=== PATIENT | male | born 1985 | race Caucasian/White ===

== ENCOUNTER → 2021-01-30 13:02 | Outpatient (BNVA) | payer BC, SELFPAY | PROVIDERS: PCP Internal Medicine; Visit Provider Internal Medicine | DX: G47.33 Obstructive sleep apnea (adult) (pediatric) (principal); R00.2 Palpitations | CPT/HCPCS: 93005 ==

== ENCOUNTER → 2021-03-08 10:36 | Outpatient (REF) | payer BC, SELFPAY ==
--- NOTE | 2021-03-08 10:42 | HM_ITS ---
REQUESTING PROVIDER: Dr. Prieto. INDICATION FOR TEST: Palpitation. TECHNIQUE: The patient was hooked up to cardiac event monitor from 03/08/2021 to 04/07/2021 for a total of 30 days. The patient reported events during this time. FINDINGS: Baseline rhythm was normal sinus rhythm with heart rate varying from 54 to 116 beats per minute. There were rare to occasional isolated PVCs noted. No significant arrhythmias either tachyarrhythmias or blocks were noted. The patient reported multiple events of palpitations, 60% of which correlated with isolated PVCs. Rest of the other symptoms correlated with sinus rhythm. CONCLUSION: Cardiac event monitor is remarkable for: 1. Baseline normal sinus rhythm with no significant tachy or bradyarrhythmias. 2. Rare to occasional isolated PVCs noted. 3. The patient reported events of palpitation and fluttering correlated with PVCs 60% of the time. Fortino Lazo MD NRS/MODL / [id number]
--- NOTE | 2021-03-08 10:42 | CA_ITS ---
Transthoracic Echocardiogram Patient (Last, First, Middle): Sky Wynn, Gender: Male Date of : 1985 Age: 35 Procedure Date: 03/08/2021 Procedure Type: Transthoracic Echocardiogram Location: OP Height: 195.58 cm Weight: 108.86 kg BSA: 2.42 m2 Heart Rate: bpm BP: 120 / 70 mmHg Florist'S Decorator: BALJINDER Referring MD: Carson Prieto MD Symptoms: R00.2 - Palpitations Study Quality: Fair ECG Rhythm: Sinus Conclusions: - The left ventricular systolic function is normal. The visually estimated ejection fraction is between 55-60%. - No obvious valvular pathology seen on this study. Findings Left Ventricle Normal left ventricular cavity size. There is normal left ventricular wall thickness. The left ventricular systolic function is normal. The visually estimated ejection fraction is between 55-60%. There is no evidence of regional wall motion abnormalities. Diastolic function is normal for age. Right Ventricle Normal right ventricular cavity size and systolic function. Atria The left atrium is normal in size. The right atrium is normal in size. Aortic Valve There is a normal trileaflet aortic valve. There is no aortic valve stenosis. There is no aortic valve regurgitation. Mitral Valve The mitral valve appears normal. There is trace mitral valve regurgitation. There is no mitral valve stenosis. Pulmonic Valve The pulmonic valve was not well visualized. Tricuspid Valve Normal tricuspid valve structure. There is no tricuspid valve regurgitation. Tricuspid regurgitation envelope is inadequate for calculation of right ventricular systolic pressure. Great Vessels The aortic annulus, sinuses of valsalva, asc aorta, and aortic arch are normal in size. Venous The inferior vena cava is normal in size and collapses greater than 50% with inspiration. Pericardium/Pleural There is no evidence of pericardial effusion. Prior Study Comparison No prior study available for comparison. Recommendations, Care & Conclusions No obvious valvular pathology seen on this study. Measurements M-Mode Liner Measurements Normals - Women/Men IVSd: 1.02 0.6-0.9/0.6-1.0 cm LVIDd: 5.94 3.9-5.3/4.2-5.9 cm LVIDd Index: 2.45 1.9-3.2 cm/m2 LVIDs: 3.74 2.0-3.8 cm M-Mode Volumes LV EDV: 176.00 LV ESV: 59.60 2D Linear Measurements IVSd: 0.84 0.6-0.9/0.6-1.0 cm LVIDd: 5.67 3.9-5.3/4.2-5.9 cm LVIDd Index: 2.34 2.4-3.2/2.2-3.1 cm/m2 LVIDs: 3.86 2.0-3.6 cm LVPWd: 0.81 0.7-1.1 cm Ao Root: 2.90 2.1-3.5 cm LA Diam: 3.60 2.7-3.8/3.0-4.0 cm LAIDs Index: 1.49 1.5-2.3 cm/m2 LV Mass: 218.67 67-162/88-224 g LV Mass Index: 90.36 43-95/49-115 g/m2 LVOT Diam: 2.50 3.0+(-)1.3 cm 2D Systolic Function EF 4C: 56.20 >55% EF 2C: 64.20 >55% EF BiP: 60.50 >55% M-Mode Systolic Function FS: 37.00 27-47/25-43% LVEF: 66.10 >55% Mitral Valve MV Pk E: 0.59 MV PK A: 0.32 MV Decel Time: 213.00 E/A: 1.80 E'Lateral: 14.10 E'Medial: 14.30 E/E' Med: 4.10 E/E' Lat: 4.20 PHT: 62.00 MVA PHT: 3.55 Decel [place]: 2.76 Aortic Valve AoV Pk Ashwin: 1.07 AoV Pk Grad: 5.00 LVOT LVOT Pk Ashwin: 1.03 LVOT Mn Ashwin: 0.63 LVOT VTI: 0.23 LVOT Pk Grad: 4.00 LVOT Mn Grad: 2.00 LVOT Diam: 2.50 LVOT Area: 4.91 Diastolic Function MV Pk E: 0.59 MV Pk A: 0.32 E/A: 1.80 E'Medial: 14.30 E/E' Med: 4.10 E' Laterial: 14.10 E/E' Lat: 4.20 Tricuspid Valve RA Press: 3.00 Great Vessels Aorta Ao Root-2D: 2.90 2.0-3.7 cm Ao Asc: 2.90 2.1-3.4 cm Ao Arch: 2.60 Updated in Other Vendor System with Status of Final Carson Prieto MD electronically signed on 03/09/2021 4:17:18 PM with status of Final
== END ==
LOC: HO.CARD 10:36
PROVIDERS: PCP Internal Medicine; Visit Provider Internal Medicine
DX: R00.2 Palpitations (principal)
CPT/HCPCS: 93225; 93270; 93272; 93306

== ENCOUNTER → 2021-04-12 08:20 | Outpatient (BNVA) | payer BC, SELFPAY | PROVIDERS: PCP Internal Medicine; Visit Provider Internal Medicine ==

== ENCOUNTER 2025-01-05 14:53 | Outpatient (AMB) | payer BC, SELFPAY ==
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
[2025-01-05 15:18] VITALS: BP 110/64; PULSE 75; TEMP 36.6; O2SAT 99; BMI 29.2
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
--- OUTSIDE RECORDS SUMMARY | 2025-01-05 16:05 | XMS_ITS | Patient Health Record ---
Author Organization [facility] Address [address] [place] [address] Care Team Providers Care Hanging Flags Decorator Name Role Phone Juanjose Bowden MD Primary Care Provider Unavail Lang Trejo Unavailable [phone] Allergies No Known Allergies Reason For Referral No Information Social History Tobacco Use: Social History Observation Description Date Details (start date - stop date) Never Smoker NA - NA Tobacco Use/Smoking Question Answer Notes Are you a: nonsmoker Additional Findings: Tobacco Non-User Current no n-smoker Alcohol Screen Question Answer Notes Did you have a drink contain ing alcohol in the past year? Yes How often did you have a dri nk containing alcohol in the past year? 2 to 3 times a week (3 points) Points 3 Interpretation Negative Tobacco use other than smoking: Question Answer Notes Are you an other tobacco user? No Problems Problem Type SNOMED Code ICD Code Onset Dates Problem Status W/U Status Risk Notes Problem Acquired hallux valgus (48303401) Hallux valgus (acquired), left foot (M20.12) Active confirmed Problem Acquired hallux valgus (85464078) Hallux valgus (acquired), right foot (M20.11) Active confirmed Vital Signs Height 6ft 5in in 07/13/2024 Weight 240 lbs 07/13/2024 BMI 28.46 kg/m2 07/13/2024 Encounters Encounter Location Date Provider Diagnosis [facility] [address] [place] [address] 07/13/2024 Lang Vela Pain in left foot M79.672 ; Pain in left ankle and joints of left foot M25.572 ; Bursitis of left foot M77.52 ; Hallux valgus (acquired), left foot M20.12 ; Pain in right foot M79.671 ; Pain in right ankle and joints of right foot M25.571 ; Bursitis of right foot M77.51 and Hallux valgus (acquired), right foot M20.11 Assessments Encounter Date Diagnosis (ICD Code) Assessment Notes Treatment Notes Treatment Clinical Notes Section Notes 07/13/2024 Pain in left foot (ICD-10 - M79.672) 07/13/2024 Pain in left ankle and joints of left foot (ICD-10 - M25.572) 07/13/2024 Bursitis of left foot (ICD-10 - M77.52) 07/13/2024 Hallux valgus (acquired), left foot (ICD-10 - M20.12) 07/13/2024 Pain in right foot (ICD-10 - M79.671) 07/13/2024 Pain in right ankle and joints of right foot (ICD-10 - M25.571) 07/13/2024 Bursitis of right foot (ICD-10 - M77.51) 07/13/2024 Hallux valgus (acquired), right foot (ICD-10 - M20.11) Plan Of Treatment Pending Test Test Name Order Date X ray : Foot, left 3V 07/13/2024 X ray : Foot, right 3V 07/13/2024 Insurance Providers Payer Name Payer Address Payer Phone Subscriber Number Group Number Insured Name Patient Relationship to Insured Coverage Start Date Coverage End Date [employer] [address] [place] [address] [id number] Sky Wynn Self - patient is the insured Medical (General) History Medical History History ICD Code asthma covid-19 Chicken pox Surgical History Surgery Date(Month/Year)
--- OUTSIDE RECORDS SUMMARY | 2025-01-05 16:05 | XMS_ITS ---
Author Organization [facility] cecily Panna Maria Address [address] [facility] [place] [address] Care Team Providers Care Sales Representative Raw [employer]ers Name Role Phone Juanjose Bowden MD Primary Care Provider Unavail Lang Trejo Unavailable [phone] Allergies No Known Allergies REASON FOR VISIT Foot pain Social History Tobacco Use: Social History Observation [...] Status Risk Notes Problem Acquired hallux valgus (25359842) Hallux valgus (acquired), left foot (M20.12) Active confirmed Problem Acquired hallux valgus (46562627) Hallux valgus (acquired), right foot (M20.11) Active confirmed Vital Signs Height 6ft 5in in 07/13/2024 Weight 240 lbs 07/13/2024 BMI 28.46 kg/m2 07/13/2024 Encounters Encounter Location Date Provider [facility] [address] [facility] [place] [address] 07/13/2024 Lang Vela Pain in left foot [...] X ray : Foot, right 3V 07/13/2024 Next Appt Details Follow Up: prn, Reason: Progress Notes * Sky WYNN CDOB:1984 (38 yo M)Acc No.[id number]:07/13/2024 Progress Notes Patient:?Sky Wynn Provider:?Lang Vela DPM :1985???Age:38 Y???Sex:Male Milo e:07/13/2024 Address:[address] [place], [place] [id number] Pcp:Juanjose Bowden MD Subjective: * Chief Complaints: * ???Foot pain * HPI: ???Foot Pain:?Location:?Inside, Great toe joint, B/L.?Duration:?several months.?Course:?worse.?Aggravated:?any pressure.?Treatments:?rest/alter normal daily activity.? * ROS:?General/Constitutional:?Nausea?denies.?Vomiting?denies.?Hunger Thirst?denies.?Loss appetite?denies.?Chills?denies.?Fatigue?denies.?Fever?denies.?Night Sweats?denies.?Unexplained weight loss?denies.?Unexplained weight gain?denies.?HEENTM:?Dentures?denies.?Dizziness?denies.?Glasses/contacts?denies.?Retinopathy?de nies.?Blurred/double vision?denies.?TMJ?denies.?Discharge/drainage?denies.?Implants?denies.?Sore throat?denies.?Dental implants?denies.?Hard of hearing ?denies.?Difficulty chewing/swallowing/speaking?denies.?Nose bleeds?denies.?Sore mouth?denies.?Respiratory:?On Oxygen?denies.?Pneumonia/pleurisy?denies.?Bronchitis?denies.?Emphysema?denies.?C oughing?denies.?Cough blood?denies.?Shortness of breath?denies.?Wheezing?denies.?Cardiovascular:?Pacemaker?denies.?MVP?denies.?WPW?denies.?CHF?denies.?Heart attack?denies.?Septal defect?denies.?Rapid beat?denies.?Chest pain ?denies.?Atrial Fib.?denies.?Murmur/Palpitations?admits.?Gastrointestinal:?Hemorrhoids?denies.?Stomach/Abdominal pain?denies.?Dark blood stool?denies.?Irritable bowel ?denies.?Constipation?denies.?Diarrhea?denies.?Hematology:?Swelling?denies.?Clots?denies.?Varicose Veins?denies.?Bruising?denies.?Bleeding problem?denies.?Genitourinary:?Blood urine?denies.?Frequent/Painfu/urination/bladder control?denies.?Kidney stones?denies.?Infection (UTI)?denies.?Nephropathy?denies.?sex trans dis (STD)?denies.?Prostate?denies.?Musculoskeletal:?Hammertoes?denies.?Bunions?admits.?Back Pain?denies.?Muscle Cramps/ Resting?denies.?Muscle cramps / walking?denies.?Generalized aches and pains?denies.?Weakness?denies.?Integ.:?Cui?denies.?Scars?denies.?Corns/calluses?denies.?Ingrown nails?denies.?Painful nails?denies.?Open Sores?denies.?Rashes?denies.?Neurologic:?Difficulty sleeping?denies.?Brain disorder?denies.?Numbness?denies.?Balance trouble?denies.?Confusion?denies.?Fainting/blackouts?denies.?Tingling?denies.?Tr emors?denies.? * Medical History:? * Surgical History:?Denies Pas t Surgical History * Hospitalization/Major Diagno stic Procedure:?Denies Past Hospitalization * Family History:?Mother: alie mcmahan.?Father: alive, heart attack, diagnosed with Diabetic - NIDDM, Unspecified essential hypertension, Unspecified heart disease.? * Social History:?Tobacco Use:?Tobacco Use/Smoking?Are you a:?nonsmoker ?Additional Findings: Tobacco Non-User?Current non-smoker ?Tobacco use other than smoking?Are you an other tobacco user??No ???Drugs/Alcohol:?Drugs?Have you used drugs other than those for medical reasons in the past 12 months??Yes ?Marijuana??Yes THC ?Alcohol Screen?Did you have a drink containing alcohol in the past year??Yes ?How often did you have a drink containing alcohol in the past year??2 to 3 times a week (3 points) ?Points?3 ?Interpretation?Negative ???Miscellaneous:?Caffeine: yes, frequency:, 1-2 cups per day. ?Marital status: . ?Occupation: [employer]. * Medications:?None * Allergies:?N.K.D.A.yes[Aller gies Verified] Objective: * Vitals:?Ht: 6ft 5in, Wt:240, BMI:28.46, Shoe size: 13, Ht-cm: 195.58 cm, Wt-k.86 kg. * Examination: ???Orthopedic: ?MUSCLE STRENGTH:?5/5 all groups in a symmetrical fashion , B/L.?BUNION:? Medially prominent 1st MPJ, (+) Pain on palpation, inflammation present medially, Lateral tracking 1st MPJ incompletely reducible, B/L, Pain assoc with 1st MPJ ROM, at end range of dorsiflexion.?X-Rays - IMAGING REPORT: ?Clinical Indication(s):? Evaluate Biomechanical Deformity.?Views:? 3 views of Foot, AP, LAT, MO, B/L.?Findings:?normal bone and soft tissue density consistent for patients age and sex.?HAV:?increased First Intermetatarsal angle and Hallux Abductus angle consistent with Bunion deformity noted, hypertrophy of the dorsal and medial 1st MTH without subchondral cyst , metatarsus primus elevatus , mild , primus metatarsal protrusion , Negative 1-2 mm , tibial sesamoid position , 3.?Fracture:?Negative fractures identified.?Neurological: ?SENSORY:?Neurological exam reveals intact sensorium, pain sensation normal, vibration sensation intact, pinprick sensation is normal in the lower extremities, Pt denies, anesthesia, burning, paresthesia, tingling, B/L.?TINEL'S COMPRESSION:? Negative, Saphenous nerve distribution, B/L.?DEEP TENDON REFLEXES:?Achilles, 2/4, B/L.?General Examination: ?GENERAL APPEARANCE:?Reveals a pleasant, alert, well-nourished, well- developed, well hydrated individual, who demonstrates proper attention to hygiene/body habitus, and is in no acute distress, Pt serves as own?historian for office visit today.?ORIENTED:?person, place, and time.?Vascular: ?DP PULSES:?3/4, B/L.?PT PULSES:?3/4, B/L.?CAPILLARY FILL TIME:?immediate, all digits, B/L.?SKIN TEMPERTURE GRADIENT OF THE LOWER EXTERMITIES:?warm to cool, proximal to distal, B/L.?HAIR GROWTH/TEXTURE/ELASTICITY/TURGOR:?normal, B/L.?PIGMENTATION:?normal, B/L.?EDEMA:?absent, B/L.?Dermatologic: ?SKIN FINDINGS:?Skin exam reveals normal texture, elasticity, and turgor. There are no masses. The interspaces are clear.? Assessment: * Assessment: 1.?Pain in left foot - M79.6 72 (Primary)?2.?Pain in left ankle and joints of left foot - M25.572?3.?Bursitis of left foot - M77.52?4.?Hallux valgus (acquired), left foot - M20.12?5.?Pain in right foot - M79.671?6.?Pain in right ankle and joints of right foot - M25.571?7.?Bursitis of right foot - M77.51?8.?Hallux valgus (acquired), right foot - M20.11? Plan: * Treatment: 2.?Pain in right foot?Imaging: X ray : Foot, right 3V * Procedure Codes:?74327 X-RAY EXAM OF LEFT FOOT 3V, Modifiers: 26 , FS75179 X-RAY EXAM OF RIGHT FOOT 3V, Modifiers: 26 , RT * Preventive Medicine:? ??Counseling:?Discussion:?-04: Office or other outpatient visit for the evaluation and management of a new patient, which required a medically appropriate history and/or examination and MODERATE level of DECISION MAKING for: 1 OR MORE CHRONIC PROBLEM(S) THATS WORSENING, 2 STABLE CHRONIC PROBLEMS, A NEWLY DIAGNOSED PROBLEM WITH UNCERTAIN PROGNOSIS, AN ACUTE COMPLICATED INJURY WITH MULTIPLE TREATMENT OPTIONS, OR AN ACUTE PROBLEM WITH ACCOMPANYING SYSTEMIC SYMPTOMS, THAT POSE(S) A MODERATE RISK OF MORBIDITY. THIS CONDITION MAY ALSO INCLUDE RX DRUG MANAGEMENT, OR A DECISON FOR MINOR SURGERY. The visit on the day of the encounter encompassed interpreting the data and educating the patient as to the nature of their condition, treatment options available according to their individual PMH, meds, allergies, and overall health/living conditions, as well as any potential risks or complications that may occur from a failure to adhere to, and participate in, the recommended course of therapy. The discussion included a complete verbal, and/or written explanation of the examination results, any x-rays taken, the proposed diagnosis, and outline of the treatment plan. A schedule for future care needs was also explained. The patient verbalized an understanding of the instructions at this time and agreed to be an active participant in their treatment. If the patient should think of any questions or concerns after the visit, I have encouraged the patient to call the office. Pt had to physically leave the office before XR findings and treatment discusssion was held. He was called to relay all the below information from conservative to surgical treatment options for his condition and verbally confirmed an understanding to the conversations content.?Digital Treatment:?I explained to the patient the risks/benefits of all the different treatment options for their pain including: No treatment at all, Rest, Ice, New/supportive/wider/deeper Shoegear, Digital Padding/Strapping/Taping/Bracing/Gel protective sleeves, Foot/Ankle AFO Bracing, Stretching exercises, Deep Tissue Massage, Arch support/shoe inserts with splay metatarsal padding, and Custom orthoses. I insisted that any digital devices be removed daily and not worn overnight for safety. The patient is to carefully examine the toes daily for any skin irritation while using any splinting or padding device. The advantages and disadvantages of each option were discussed and the patients questions re: shoegear, padding, custom vs prefabricated inserts, activity level, and consistency in home treatment regimens for optimal success were answered to their verbally confirmed satisfaction.?Discussion for Bunion sx:?Several different types of Bunion surgeries were discussed with the patient, including, but not limited to: Modified Beaulieu bone removal and soft tissue release/realignment, Ronnie osteotomy with soft tissue release/realignment and internal fixation, Shaft v Base wedge osteotomies with internal fixation, and Lapidus joint fusion procedures with internal fixation. We discussed the risks of having surgery (described below) vs not having surgery (persistent pain, deformity, risk for skin ulceration/infection, loss of toe) as well as the potential surgical complications including, but not limited to: pain, swelling, bleeding, scarring, numbness, infection, delayed/non healing, floppy/unstable/shorthened toe, recurrence, failure of the procedure, overcorrection leading to plantarflexed/downward/upward positioned toe, recurrence, need for further surgery, as well as the possibility for loss of the toe itself. We discussed the use of IV/Local regional anesthesia, and the usual post-op course for healing. No guarentees were given. The patient verbally indicated a full understanding of the above conversation, and any other of their questions were answered to their satisfaction.?Orthotics:?I explained to the patient the benefits of OT use. I explained that orthoses are medically necessary to decrease the foot pain through proper mechanical control, support of their foot, cushion the forefoot by supplementing the soft tissue, possibly delay of the progression of the bunion deformity, possibly prevent surgery.?P.R.I.C.E.:?The patient was counseled on the use of P.R.I.C.E. and NSAIDS (if well tolerated) to aid in the recovery from their painful condition , Recommended Topical analgesics including Biofreeze/Aspercream/Voltaren gel.?Shoe Gear Counseling:?The patient and I reviewed the types of shoes they should be wearing. My recommendation included obtaining a well-fitted shoe with a good supportive, non-foldable nor twistable sole, plenty of toe/room for the forefoot, and proper arch support. Based on todays examination, I recommended the patient look for new shoes, by having their feet professionally measured. We discussed that generally the best time of the day for a shoe fitting is the afternoon. Different shoes types and brands to best match the patients occupation and vocation were discussed. Specific brand selection will be up to the patient, their individual foot condition/deformities, and fit. The patient and I reviewed the standard new shoe break in period by wearing them for a few hours a day while checking for redness or sores as wear time is increased. The patient verbally confirmed to understanding the information discussed.? * Follow Up:?prn * Images: * Sign off status: Completed true * Provider:?Lang Vela DPM Date:?2023 Generated for Stacey cruz/Natalie/Kaylin on:?01/05/2025 04:05 PM EST History and Physical Notes * HPI (History of Present Illness) Category Sub-Category Detail Notes Category Not es Foot Pain Location: Inside, Great toe joint, B/L Duration: several months Course: worse Aggravated: any pressure Treatments: rest/alter normal da bridget activity Examination Category Sub-Category Detail Notes Category Not es Neurological SENSORY: Neurological exa m reveals intact sensorium, pain sensation normal, vibration sensation intact, pinprick sensation is normal in the lower extremities, Pt denies, anesthesia, burning, paresthesia, tingling, B/L TINEL'S COMPRESSION: Negative, Saphenous nerve distribution, B/L DEEP TENDON REFLEXES: Achilles, 2/4, B/L Dermatologic SKIN FINDINGS: Skin exam reveal s normal texture, elasticity, and turgor. There are no masses. The interspaces are clear Orthopedic BUNION: Medially promine nt 1st MPJ, (+) Pain on palpation, inflammation present medially, Lateral tracking 1st MPJ incompletely reducible, B/L, Pain assoc with 1st MPJ ROM, at end range of dorsiflexion MUSCLE STRENGTH: 5/5 all groups in a symmetrical fashion , B/L General Examination GENERAL APPEARANCE: Reveals a pleasant, alert, well- nourished, well-developed, well hydrated individual, who demonstrates proper attention to hygiene/body habitus, and is in no acute distress, Pt serves as own historian for office visit today ORIENTED: person, place, and t bam Vascular DP PULSES (B): 3/4, B/L PT PULSES (B): 3/4, B/L CAPILLARY FILL TIME: immediate, all digi ts, B/L TEMPERTURE GRADIENT (C): warm to cool, p roximal to distal, B/L TROPHIC CONDITION-TEXTURE/ELASTICITY/TURGOR/HAIR GROWTH (B): normal, B/L EDEMA (C): absent, B/L PIGMENTATION: normal, B/L X-Rays - IMAGING REPORT Findings: normal b one and soft tissue density consistent for patients age and sex Fracture: Negative fractures i dentified HAV: increased First Inte rmetatarsal angle and Hallux Abductus angle consistent with Bunion deformity noted, hypertrophy of the dorsal and medial 1st MTH without subchondral cyst , metatarsus primus elevatus , mild , primus metatarsal protrusion , Negative 1-2 mm , tibial sesamoid position , 3 Views: 3 views of Foot, AP, LAT, MO, B/L Clinical Indication(s): Evaluate Biomech anical Deformity
--- OUTSIDE RECORDS SUMMARY | 2025-01-05 16:05 | XMS_ITS ---
Author Organization Juanjose Bowden DO, FACP Address [address] [place] [phone] Care Team Providers Care Server Support Technician Name Role Phone DenniseJuanjose hayes Primary Care Provider [phone] REASON FOR VISIT Refills MEDICATIONS Medication SIG (Take, Route, Frequency, Duration) Notes Start Date End Date Status Montelukast Sodium 10 MG 1 tablet Orally Once a day for 90 days Active Encounters Encounter Location Date Provider Diagnosis [facility], [facility] [address] [place] [phone] 11/10/2024 Juanjose Bowden Mild intermittent asthma without complication J45.20 ASSESSMENTS Encounter Date Diagnosis Assessment Notes Treatment Notes Treatment Clinical Notes 11/10/2024 Mild intermittent asthma without complication (ICD-10 - J45.20) PLAN OF TREATMENT Medication Medication Name Sig Start Date Stop Date Notes Montelukast Sodium 10 MG 1 tablet Orally Once a day for 90 days
--- OUTSIDE RECORDS SUMMARY | 2025-01-05 16:05 | XMS_ITS | Continuity of Care Document ---
Author Organization [facility] Address [address] [place] [address] Phone Care Team Providers Care Crm Marketing Specialist Name Role Phone Ophelia Christiansen DNP Unavailable [...] - No Longer Active Procedures Procedure Date [facility] Offic/outpt E&m New Low-mod 20 [...] Diagnoses Date Provider Providers Copied on Encounter [facility], [address], [place], [place], [id number], [place] tel:[phone] [facility] CM ACUTE SINUSITIS Lizbet MARINO Ophelia. [address], [address], [place], [place], [id number], [place]. tel:[phone] Referring Provider: Lucero Hall MD, [address] [facility] [address] [facility] [place], [address]. tel:[phone] Offic/outpt E&m New Low-mod 20 [facility], [address], [place], [place], [id number], [place] tel:[phone] [facility] CM CORNEAL INJURY, SUPERFICIAL Laura MSN RN [facility]- [facility]. [address], [place], [place], [id number], [place]. tel:[phone] Family History Family Member Type Diagnosis Age At Onset No Information Payers Payer name Insurance type Covered green party ID Edna mane(s) [facility] [id number] Social History Type Description Quantity Date Captured [...]
--- OUTSIDE RECORDS SUMMARY | 2025-01-05 16:05 | XMS_ITS ---
Author Organization [facility] Flash Monta[place] Address [address] [place] [address] Care Team Providers Care Surgical Specialist Name Role Phone Dennise ALFORD, Juanjose Primary Care Provider Unavail Lang Trejo Unavailable [phone] Gage Encounters Encounter Location Date Provider Diagnosis [facility] [address] [place] [address] 07/02/2024 Lang Vela Plan Of Treatment No Information Progress Notes * Sky WYNN CDOB:1984 (39 yo M)Acc No.[id number]:07/02/2024 Progress Notes Patient:?Sky WYNN Provider:?Lang Vela DPM :1985???Age:38 Y???Sex:Male Milo e:07/02/2024 Address:[address] [place] [address] TREY USN [id number] Pcp:Juanjose Bowden MD Subjective: * Chief Complaints: * ???1. Dr Gage. * Medical History:? Objective: * Vitals:? Assessment: Plan: * Treatment: * Images: * The named appointment provid er may or may not be the originator of this progress note, and it is not deemed complete until electronically signed by the appointment provider. Sign off status: Pending * Provider:?Lang Vela DPM Date:?2023 Generated for Stacey cruz/Natalie/Kaylin on:?01/05/2025 04:05 PM EST
--- OUTSIDE RECORDS SUMMARY | 2025-01-05 16:05 | XMS_ITS ---
Author Organization Juanjose Bowden DO, FACP Address [address] [place] [phone] Care Team Providers Care Driftman Name Role Phone Juanjose Bowden Primary Care Provider [phone] REASON FOR REFERRAL Diagnosis 1 Knee pain, unspecifi ed chronicity, unspecified laterality (M25.569) [facility] Referring Provider First Name Juanjose Referring Provider Last Name Dennise Referring Provider Speciality Internal M edicine Referred Provider Deniz Mcqueen Referred Provider Specialty Orthopedic S urgery Referral Priority Routine REASON FOR VISIT Continued Care and Knee Problem Encounters Encounter Location Date Provider Diagnosis SABRINA Casey DO[address] [id number] 11/16/2024 Juanjose Bowden Knee pain, unspecified chronicity, unspecified laterality M25.569 ASSESSMENTS Encounter Date Diagnosis Assessment Notes Treatment Notes Treatment Clinical Notes 11/16/2024 Knee pain, unspecified chronicity, unspecified laterality (ICD-10 - M25.569) PLAN OF TREATMENT Referrals Referral Date Details Deniz Mcqueen Consultation Request Notes Referral Date Referring Provider Referred Provider Corie jay 11/16/2024 Juanjose Bowden Noah
--- OUTSIDE RECORDS SUMMARY | 2025-01-05 16:06 | XMS_ITS ---
Author Organization Juanjose Bowden DO [facility] Address [address] [place] [phone] Care Team Providers Care Repertoire Manager Name Role Phone DenniseJuanjose hayes Primary Care Provider [phone] REASON FOR VISIT New Refill Request MEDICATIONS Medication SIG (Take, Route, Frequency, Duration) Notes Start Date End Date Status Montelukast Sodium 10 MG 1 tablet Orally Once a day for 90 days Active Encounters Encounter Location Date Provider Diagnosis Juanjose Bowden DO, [address] [phone] 11/16/2024 Juanjose Bowden Mild intermittent asthma without complication J45.20 ASSESSMENTS Encounter Date Diagnosis Assessment Notes Treatment Notes Treatment Clinical Notes 11/16/2024 Mild intermittent asthma without complication (ICD-10 - J45.20) PLAN OF TREATMENT Medication Medication Name Sig Start Date Stop Date Notes Montelukast Sodium 10 MG 1 tablet Orally Once a day for 90 days
== END 2025-01-05 15:27 | disposition home or self-care (01) ==
LOC: HO.HMCSH 14:53
PROVIDERS: PCP Internal Medicine; Visit Provider Physician Assistant Medical
DX: M25.561 Pain in right knee (principal); J45.909 Unspecified asthma, uncomplicated; I49.3 Ventricular premature depolarization; G47.33 Obstructive sleep apnea (adult) (pediatric); R00.2 Palpitations; E66.3 Overweight

== ENCOUNTER 2025-01-07 09:04 | Outpatient (REF) | payer BC, SELFPAY ==
--- NOTE | ~2025-01-07 | XR_ITS ---
CLINICAL HISTORY: M25.561 - Pain in right knee 4 view right knee Comparison: None Findings: No fractures or dislocations. Mild joint space narrowing in the medial compartment. Small joint effusion. No radiopaque foreign body. IMPRESSION: 1. No acute fracture. This document has been electronically signed by: Otf Vera MD on 01/08/2025 05:42:12
[2025-01-07 09:28] LABS: MANUAL DIFF FLAG NO
--- OUTSIDE RECORDS SUMMARY | 2025-01-07 09:28 | XMS_ITS | Patient Health Record ---
Author Organization [facility] Address [address] [facility] [place] [address] Care Team Providers Care Data Conversion Operator Name Role Phone Juanjose Bowden MD Primary Care Provider Unavail Lang Trejo Unavailable [phone] Allergies No Known Allergies Reason For Referral [...] Status Risk Notes Problem Acquired hallux valgus (58642795) Hallux valgus (acquired), left foot (M20.12) Active confirmed Problem Acquired hallux valgus (06294784) Hallux valgus (acquired), right foot (M20.11) Active confirmed Vital Signs Height 6ft 5in in 07/13/2024 Weight 240 lbs 07/13/2024 BMI 28.46 kg/m2 07/13/2024 Encounters Encounter Location Date Provider Diagnosis [facility] [address] [place] [address] 07/13/2024 Lang Vela Pain in left foot [...] Coverage End Date [employer] [id number] [place] [address] [id number] Sky Wynn Self - patient is the insured Medical (General) History Medical History History ICD Code asthma covid-19 Chicken pox Surgical History Surgery Date(Month/Year)
--- OUTSIDE RECORDS SUMMARY | 2025-01-07 09:28 | XMS_ITS ---
Author Organization Juanjose Bowden DO, FACP Address [address] [place] [phone] Care Team Providers Care School Psychology Professor Name Role Phone DenniseJuanjose hayes Primary Care Provider REASON FOR VISIT Refills MEDICATIONS Medication SIG (Take, Route, Frequency, Duration) Notes Start Date End Date Status Montelukast Sodium 10 MG 1 tablet Orally Once a day for 90 days Active Encounters Encounter Location Date Provider Diagnosis [facility] [address] [place] [phone] 11/10/2024 Juanjose Bowden Mild intermittent asthma without complication J45.20 ASSESSMENTS Encounter Date Diagnosis Assessment Notes Treatment Notes Treatment Clinical Notes 11/10/2024 Mild intermittent asthma without complication (ICD-10 - J45.20) PLAN OF TREATMENT Medication Medication Name Sig Start Date Stop Date Notes Montelukast Sodium 10 MG 1 tablet Orally Once a day for 90 days
--- OUTSIDE RECORDS SUMMARY | 2025-01-07 09:29 | XMS_ITS | Patient Health Record ---
Author Organization Juanjose Bowden DO FACP Address [address] [place] [phone] Care Team Providers Care Small Offset Printer Name Role Phone DenniseJuanjose hayes Primary Care [...] to locate an in-network provider (or if [id number] benefits are available)/, Ophelia Avila 04/07/2024 11:13:05 [...] and neglect (Y07.521) Referral Organization Juanjose Cary, [facility] Referring Provider First Name Juanjose Referring Provider Last Name Dennise Referring Provider Speciality Internal M edicine Referred Provider [facility], [facility] General Notes Adriana Lr 09:36:36 AM EDT [...] if a spot opens up sooner that [facility] he would take him or referr him to someone else. Referral Priority Routine Diagnosis 1 Knee pain, unspecifi ed chronicity, unspecified laterality (M25.569) Referral Organization Juanjose Cayr, FACP Referring Provider First Name Juanjose Referring [...] intermittent asthma without complication (J45.20) Active confirmed [id number] Problem Deviated septum (J34.2) Active confirmed 402059655 Problem Palpitations (R00.2) Active confirmed 21122093 Problem Other chronic pain (G89.29) Active confirmed 68344933 Problem Low back pain, unspecified (M54.50) Active confirmed 532047765 Problem Adult ADHD (F90.9) Active confirmed 035901776 VITAL SIGNS Blood pressure diastolic 64 mm Hg 03/23/2024 Height 77 in 03/23/2024 Blood pressure systolic 108 mm Hg 03/23/2024 Weight 258 lbs 03/23/2024 BMI 30.59 kg/m2 03/23/2024 Encounters Encounter Location Date Provider Diagnosis Juanjose Bowden DO, [address] [id number] 03/23/2024 Juanjose Bowden Encounter for genera l adult medical examination without abnormal findings Z00.00 ; Right foot pain M79.671 ; Other chronic pain G89.29 ; Low back pain, unspecified M54.50 and Mild intermittent asthma without complication J45.20 Juanjose oBwden DO, [address] [id number] 08/16/2024 Juanjose Bowden DO, [address] [id number] 11/10/2024 Juanjose Bowden Mild intermittent asthma without complication J45.20 Juanjose Bowden DO, [address] [id number] 03/28/2024 Juanjose Bowden Adult ADHD F90.9 Juanjose Bowden DO, [address] [id number] 03/29/2024 Juanjose Bowden DO, [address] [id number] 06/04/2024 Juanjose Bowden DO, [address] [id number] 08/25/2024 Juanjose Bowden DO, [address] [id number] 10/18/2024 Juanjose Bowden Mild intermittent asthma without complication J45.20 Juanjose Bowden DO, [address] [id number] 11/16/2024 Juanjose Bowden Knee pain, unspecified chronicity, unspecified laterality M25.569 Juanjose Bowden DO, [address] [id number] 11/16/2024 Juanjose Bowden Mild intermittent asthma without [...] Insured Coverage Start Date Coverage End Date [facility] [address] [place], [place] [id number] Sky Wynn Self - patient is the insured MEDICAL (GENERAL) HISTORY Medical History History ICD Code asthma - mild intermittent Surgical History Surgery Date(Month/Year) deviated septum repair wisdom teeth extraction
--- OUTSIDE RECORDS SUMMARY | 2025-01-07 09:29 | XMS_ITS ---
Author Organization [facility] Flash Montaño Address [address] [place] [address] Care Team Providers Care Highway Administrative Engineer Name Role Phone Dennise ALFORD, Juanjose Primary Care Provider Unavail Lang Trejo Unavailable [phone] Gage Encounters Encounter Location Date Provider Diagnosis [facility] [address] [place] [address] 07/02/2024 Lang Vela Plan Of Treatment No Information Progress Notes * Sky WYNN CDOB:1984 (39 yo M)Acc No.[id number]:07/02/2024 Progress Notes Patient:?Sky WYNN Provider:?Lang Vela DPM :1985???Age:38 Y???Sex:Male Milo e:07/02/2024 Address:[address] [place] [address] [place] [id number] Pcp:Juanjose Bowden MD Subjective: * Chief Complaints: [...] Provider:?Lang Vela DPM Date:?2023 Generated for Stacey cruz/Natalie/Rachelitting on:?01/07/2025 09:29 AM EST
--- OUTSIDE RECORDS SUMMARY | 2025-01-07 09:29 | XMS_ITS ---
Author Organization Juanjose Bowden DO, FACP Address [address] [place] [id number] Care Team Providers Care Chinese Language Professor Name Role Phone Juanjose Bowden Primary Care Provider [phone] REASON FOR REFERRAL Diagnosis 1 Knee pain, unspecifi ed chronicity, unspecified laterality (M25.569) [facility] Referring Provider First Name Juanjose Referring Provider Last Name Dennise Referring Provider Speciality Internal M edicine Referred Provider Deniz Mcqueen Referred Provider Specialty Orthopedic S urgery Referral Priority Routine REASON FOR VISIT Continued Care and Knee Problem Encounters Encounter Location Date Provider Diagnosis SABRINA Casey DO[address] [id number] 11/16/2024 Juanjose Bowden Knee pain, unspecified chronicity, unspecified laterality M25.569 ASSESSMENTS Encounter Date Diagnosis Assessment Notes Treatment Notes Treatment Clinical Notes 11/16/2024 Knee pain, unspecified chronicity, unspecified laterality (ICD-10 - M25.569) PLAN OF TREATMENT Referrals Referral Date Details Deniz Mcqueen Consultation Request Notes Referral Date Referring Provider Referred Provider Corie jay 11/16/2024 Juanjose Bowden Noah
--- OUTSIDE RECORDS SUMMARY | 2025-01-07 09:29 | XMS_ITS ---
Author Organization [facility] cecily [place] Address [address] [facility] [place] [address] Care Team Providers Care Procedure Rn Name Role Phone Juanjose Bowden MD Primary Care Provider Unavail Lang Trejo Unavailable [phone] Allergies No Known Allergies REASON FOR VISIT [...] Status Risk Notes Problem Acquired hallux valgus (58229755) Hallux valgus (acquired), left foot (M20.12) Active confirmed Problem Acquired hallux valgus (07124882) Hallux valgus (acquired), right foot (M20.11) Active confirmed Vital Signs Height 6ft 5in in 07/13/2024 Weight 240 lbs 07/13/2024 BMI 28.46 kg/m2 07/13/2024 Encounters Encounter Location Date Provider Diagnosis [facility] [address] [facility] [place] [address] 07/13/2024 Lang Vela Pain in left foot [...] * Sky WYNN CDOB:1984 (38 yo M)Acc No.[id number]:07/13/2024 Progress Notes Patient:?Sky Wynn Provider:?Lang Vela DPM :1985???Age:38 Y???Sex:Male Milo e:07/13/2024 Address:[address] [place], [place] [address] Pcp:Juanjose Bowden MD Subjective: * Chief Complaints: [...] cups per day. ?Marital status: . ?Occupation: [employer]/ [employer]. * Medications:?None * Allergies:?N.K.D.A.yes[Aller gies Verified] Objective: [...] ray : Foot, right 3V * Procedure Codes:?43795 X-RAY EXAM OF LEFT FOOT 3V, Modifiers: 26 , [id number] X-RAY EXAM OF RIGHT FOOT 3V, Modifiers: [...] Vela DPM Date:?2023 Generated for Stacey cruz/Natalie/Kaylin on:?01/07/2025 09:29 AM EST History and Physical Notes * HPI [...]
--- OUTSIDE RECORDS SUMMARY | 2025-01-07 09:30 | XMS_ITS ---
Author Organization Juanjose Bowden DO [facility] Address [address] [place] [phone] Care Team Providers Care Qa Automation Engineer Name Role Phone DenniseJuanjose hayes Primary Care Provider [phone] REASON FOR VISIT New Refill Request MEDICATIONS Medication SIG (Take, Route, Frequency, Duration) Notes Start Date End Date Status Montelukast Sodium 10 MG 1 tablet Orally Once a day for 90 days Active Encounters Encounter Location Date Provider Diagnosis Juanjose Bowden DO, [address] [phone] 11/16/2024 Juanjose Bowden Mild intermittent asthma without complication J45.20 ASSESSMENTS Encounter Date Diagnosis Assessment Notes Treatment Notes Treatment Clinical Notes 11/16/2024 Mild intermittent asthma without complication (ICD-10 - J45.20) PLAN OF TREATMENT Medication Medication Name Sig Start Date Stop Date Notes Montelukast Sodium 10 MG 1 tablet Orally Once a day for 90 days
[2025-01-07 09:37] LABS: Basophils Percent Auto 0.4 % (0-2); Eosinophils Absolute Auto 0.1 X10*3/uL (0.0-0.4); Eosinophils Percent Auto 1.9 % (0-4); Hematocrit 43.6 % (42.0-52.0); Hemoglobin 14.6 g/dl (14.0-18.0); Imm Gran Abs Auto 0.01 X10*3/uL (0.00-0.03); Imm Gran Pct Auto 0.2 % (0.0-0.4); Lymphocytes Absolute Auto 1.6 X10*3/uL (1.2-4.9); Lymphocytes Percent Auto 33.3 % (20-40); Mean Corpuscular HGB Conc 33.5 g/dl (31.0-36.0); Mean Corpuscular Hemoglobin 29.7 pg (27.0-33.0); Mean Corpuscular Volume 88.6 fL (80.0-98.0); Mean Platelet Volume 10.2 fL (9.4-12.4); Monocytes Absolute Auto 0.6 X10*3/uL (0.1-1.2); Monocytes Percent Auto 12.3 % (2-11); Neutrophils Absolute Auto 2.4 x10*3/uL (2.0-8.3); Neutrophils Percent Auto 51.9 % (45-73); Platelet Count 218 X10*3/uL (160-400); Red Blood Count 4.92 X10*6/uL (4.60-5.80); Red Cell Distribution Width 12.2 % (11.0-16.0); White Blood Count 4.7 X10*3/uL (4.8-10.8)
[2025-01-07 09:45] LABS: Estimated Average Glucose 103 mg/dL; Hemoglobin A1C 128.1302 umol/L; Hemoglobin A1c % 5.2 % (<6.0); Total Hemoglobin (HGBA1C) 3856.1334 umol/L
[2025-01-07 10:41] LABS: Alanine Aminotransferase 24 U/L (0-40); Albumin Level 4.5 g/dL (3.5-5.0); Alkaline Phosphatase 67 U/L (39-117); Anion Gap 10 (12-20); Aspartate Amino Transferase 28 U/L (5-37); Bilirubin Direct 0.2 mg/dL (0.0-0.5); Bilirubin Total 0.6 mg/dL (0.0-1.0); Blood Urea Nitrogen 17 mg/dL (9-16); C Reactive Protein 0.21 mg/dL (< or = 0.50); Calcium 9.4 mg/dL (8.4-10.2); Carbon Dioxide 29 mmol/L (22-29); Chloride 104 mmol/L (96-108); Cholesterol 174 mg/dL (<200); Estimated Glomerular Filt Rate > 60; Glucose Fasting 90 mg/dL (60-99); HDL Cholesterol 51 mg/dL (>40); LDL Cholesterol Calculated 99 mg/dL (<100); Magnesium 2.1 mg/dL (1.6-2.6); Potassium 3.9 mmol/L (3.3-5.1); Sodium 139 mmol/L (135-145); TSH reflex Free T4 2.38 uIU/mL (0.32-4.0); Total Protein 7.8 g/dL (6.5-8.0); Triglycerides 120 mg/dL (<150); Vitamin D 25-OH Total 34.2 ng/mL (>30)
[2025-01-07 10:56] LABS: Folate 13.2 ng/mL (> or = 4.0); Vitamin B12 302 pg/mL (200-900)
[2025-01-10 18:44] LABS: Lyme Abs Screen <0.90 index
[2025-01-13 16:23] LABS: Testosterone, Total 663 ng/dL (250-1100)
[2025-01-14 13:28] LABS: Vitamin B1 12 nmol/L (8-30)
== END 2025-01-07 09:05 | disposition home or self-care (01) ==
LOC: HO.XRAY 09:04
PROVIDERS: PCP Internal Medicine; Visit Provider Physician Assistant Medical
DX: Z00.00 Encounter for general adult medical examination without abnormal findings (principal); M25.561 Pain in right knee; W57.XXXA Bitten or stung by nonvenomous insect and other nonvenomous arthropods, initial encounter; T14.8XXA Other injury of unspecified body region, initial encounter; Z13.1 Encounter for screening for diabetes mellitus; Z13.6 Encounter for screening for cardiovascular disorders
CPT/HCPCS: 36415; 73564; 80053; 80061; 80076; 82248; 82306; 82607; 82746; 83036; 83735; 84403; 84425; 84443; 85025; 86140; 86617; 86618

== ENCOUNTER → 2025-01-07 09:28 | Outpatient (BNV) | payer BC, SELFPAY | PROVIDERS: PCP Internal Medicine; Visit Provider Radiology Diagnostic Radiology | DX: M25.561 Pain in right knee (principal) | CPT/HCPCS: 73564 ==

== ENCOUNTER 2025-01-26 08:38 | Outpatient (REF) | payer BC, SELFPAY ==
--- OUTSIDE RECORDS SUMMARY | 2025-01-26 09:17 | XMS_ITS ---
Author Organization [facility] cecily [place] Address [address] [facility] [place] [address] Care Team Providers Care Hearing Aid Repair Technician Name Role Phone Juanjose Bowden MD Primary Care Provider Unavail Lang Trejo Unavailable [phone] Allergies No Known Allergies REASON FOR VISIT [...] Status Risk Notes Problem Acquired hallux valgus (59627618) Hallux valgus (acquired), left foot (M20.12) Active confirmed Problem Acquired hallux valgus (59035707) Hallux valgus (acquired), right foot (M20.11) Active confirmed Vital Signs Height 6ft 5in in 07/13/2024 Weight 240 lbs 07/13/2024 BMI 28.46 kg/m2 07/13/2024 Encounters Encounter Location Date Provider Diagnosis [facility] [place] [address] 07/13/2024 Lang Vela Pain in left foot [...] * Sky WYNN CDOB:1984 (38 yo M)Acc No.[id number]:07/13/2024 Progress Notes Patient:?Sky Wynn Provider:?Lang Vela DPM :1985???Age:38 Y???Sex:Male Milo e:07/13/2024 Address:[address] [place], [place] [address] Pcp:Juanjose Bowden MD Subjective: * Chief Complaints: [...] cups per day. ?Marital status: . ?Occupation: [employer]. * Medications:?None * Allergies:?N.K.D.A.yes[Aller gies Verified] Objective: [...] ray : Foot, right 3V * Procedure Codes:?71238 X-RAY EXAM OF LEFT FOOT 3V, Modifiers: 26 , [id number] X-RAY EXAM OF RIGHT FOOT 3V, Modifiers: [...] Vela DPM Date:?2023 Generated for Stacey cruz/Natalie/Kaylin on:?01/26/2025 09:17 AM EST History and Physical Notes * [...]
--- OUTSIDE RECORDS SUMMARY | 2025-01-26 09:17 | XMS_ITS | Patient Health Record ---
Author Organization [facility] Address [address] [facility] [place] [address] Care Team Providers Care Recreation Specialist Name Role Phone Juanjose Bowden MD Primary Care Provider Unavail Lang Trejo Unavailable [phone] Allergies No Known Allergies Reason For Referral [...] Status Risk Notes Problem Acquired hallux valgus (84189333) Hallux valgus (acquired), left foot (M20.12) Active confirmed Problem Acquired hallux valgus (33106575) Hallux valgus (acquired), right foot (M20.11) Active confirmed Vital Signs Height 6ft 5in in 07/13/2024 Weight 240 lbs 07/13/2024 BMI 28.46 kg/m2 07/13/2024 Encounters Encounter Location Date Provider Diagnosis [facility] [address] [place] [address] 07/13/2024 Lang Vela Pain in left foot [...] Coverage End Date [employer] [address] [place] [address] [id number] 3 Sky Wynn Self - patient is the insured Medical (General) History Medical History History ICD Code asthma covid-19 Chicken pox Surgical History Surgery Date(Month/Year)
--- OUTSIDE RECORDS SUMMARY | 2025-01-26 09:17 | XMS_ITS | Continuity of Care Document ---
Author Organization [facility] Address [address] [place] [address] Phone Care Team Providers Care Child Care Development Specialist Name Role Phone Ophelia Christiansen DNP [...] - No Longer Active Procedures Procedure Date [facility] Offic/outpt E&m New Low-mod 20 [...] Diagnoses Date Provider Providers Copied on Encounter [facility], [address], [place], [place], [id number], [place] tel:[phone] [facility] CM ACUTE SINUSITIS Lizbet MARINO Ophelia. [address] [facility], [address], [place], [place], [address], [place]. tel:[phone] Referring Provider: Lucero Hall MD, [address] [facility] [address] [facility], [place], [address]. tel:[phone] Offic/outpt E&m New Low-mod 20 [facility], [address], [place], [place], [id number], [place] tel:[phone] [facility] CM CORNEAL INJURY, SUPERFICIAL Laura MSN RN [facility]- Leann. [address], [place], [place], [address], [place]. tel:[phone] Family History Family Member Type Diagnosis Age At Onset No Information Payers Payer name Insurance type Covered green party ID Edna mane(s) [facility] [id number] Social History Type Description Quantity Date Captured [...]
--- OUTSIDE RECORDS SUMMARY | 2025-01-26 09:17 | XMS_ITS ---
Author Organization [facility] Flash Montaño Address [address] [place] [address] Care Team Providers Care Shower Maid Name Role Phone Dennise ALFORD, Juanjose Primary Care Provider Unavail Lang Trejo Unavailable [phone] Gage Encounters Encounter Location Date Provider Diagnosis [facility] [address] [place] [address] 07/02/2024 Lang Vela Plan Of Treatment No Information Progress Notes * Sky WYNN CDOB:1984 (39 yo M)Acc No.[id number]:07/02/2024 Progress Notes Patient:?Sky WYNN Provider:?Lang Vela DPM :1985???Age:38 Y???Sex:Male Milo e:07/02/2024 Address:[address] [place] [address] [id number] Pcp:Juanjose Bowden MD Subjective: * Chief Complaints: [...] Vela DPM Date:?2023 Generated for Stacey cruz/Natalie/Rachelitting on:?01/26/2025 09:17 AM EST
== END 2025-01-26 08:39 | disposition home or self-care (01) ==
LOC: HO.MRI 08:38
PROVIDERS: PCP Internal Medicine; Visit Provider Physician Assistant Medical
DX: M25.561 Pain in right knee (principal)
CPT/HCPCS: 73721

== ENCOUNTER → 2025-01-26 08:46 | Outpatient (BNV) | payer BC, SELFPAY | PROVIDERS: PCP Internal Medicine; Visit Provider Radiology Diagnostic Radiology | DX: M25.461 Effusion, right knee (principal); M71.21 Synovial cyst of popliteal space [Baker], right knee; M23.311 Other meniscus derangements, anterior horn of medial meniscus, right knee; M23.641 Other spontaneous disruption of lateral collateral ligament of right knee | CPT/HCPCS: 73721 ==

== ENCOUNTER 2025-01-31 15:03 | Outpatient (REF) | payer BC, SELFPAY ==
--- NOTE | ~2025-01-31 | XR_ITS ---
EXAMINATION: XR CHEST 2 VIEWS HISTORY: R05.9 - Cough, unspecified COMPARISON: There are no prior studies for comparison. FINDINGS: PA and lateral views of the chest are submitted. The lungs are expanded and clear. There is no pleural effusion, pneumothorax, or pulmonary vascular congestion. The heart is normal in size. There is slight dextroscoliosis of the upper thoracic spine. XR/XR chest 2V IMPRESSION: Clear lungs. Electronically signed by: Juanjose Causey MD 01/31/2025 03:38 PM EDT
[2025-01-31 16:06] LABS: Influenza A PCR NEGATIVE (Negative); Influenza B PCR NEGATIVE (Negative); Resp Syncy Virus RNA Qual PCR NEGATIVE (Negative); SARS COV2 PCR INHOUSE NEGATIVE (Negative)
--- OUTSIDE RECORDS SUMMARY | 2025-01-31 17:18 | XMS_ITS ---
Author Organization [facility] Flash Montaño Address [address] [place] [address] Care Team Providers Care Sap Bpc Developer Name Role Phone Dennise ALFORD, Juanjose Primary Care Provider Unavail Lang Trejo Unavailable [phone] Gage Encounters Encounter Location Date Provider Diagnosis [facility] [address] [place] [address] 07/02/2024 Lang Vela Plan Of Treatment No Information Progress Notes * Sky WYNN CDOB:1984 (39 yo M)Acc No.[id number]:07/02/2024 Progress Notes Patient:?Sky WYNN Provider:?Lang Vela DPM :1985???Age:38 Y???Sex:Male Milo e:07/02/2024 Address:[address] [place] [address] [place] [id number] Pcp:Juanjose Bowden MD Subjective: * Chief Complaints: [...] Vela DPM Date:?2023 Generated for Stacey cruz/Natalie/Kaylin on:?01/31/2025 05:17 PM EDT
--- OUTSIDE RECORDS SUMMARY | 2025-01-31 17:18 | XMS_ITS ---
Author Organization [facility] cecily [place] Address [address] [facility] [place] [address] Care Team Providers Care Spool Hauler Name Role Phone Juanjose Bowden MD Primary Care Provider Unavail Lang Trejo Unavailable [phone] Allergies No Known Allergies REASON FOR VISIT [...] Status Risk Notes Problem Acquired hallux valgus (05532197) Hallux valgus (acquired), left foot (M20.12) Active confirmed Problem Acquired hallux valgus (83912610) Hallux valgus (acquired), right foot (M20.11) Active confirmed Vital Signs Height 6ft 5in in 07/13/2024 Weight 240 lbs 07/13/2024 BMI 28.46 kg/m2 07/13/2024 Encounters Encounter Location Date Provider Diagnosis [facility] [address] [place] [address] 07/13/2024 Lang Vela Pain in left foot [...] * Sky WYNN CDOB:1984 (38 yo M)Acc No.[id number]:07/13/2024 Progress Notes Patient:?Sky Wynn Provider:?Lang Vela DPM :1985???Age:38 Y???Sex:Male Milo e:07/13/2024 Address:[address] [place], [place] [address] Pcp:Juanjose Bowden MD Subjective: * Chief Complaints: [...] cups per day. ?Marital status: . ?Occupation: [employer]/ [employer]. * Medications:?None * Allergies:?N.K.D.A.yes[Aller gies Verified] Objective: [...] ray : Foot, right 3V * Procedure Codes:?72115 X-RAY EXAM OF LEFT FOOT 3V, Modifiers: 26 , [id number] X-RAY EXAM OF RIGHT FOOT 3V, Modifiers: [...] for Stacey cruz/Natalie/Kaylin on:?01/31/2025 05:17 PM EDT History and Physical Notes * HPI (History [...]
--- OUTSIDE RECORDS SUMMARY | 2025-01-31 17:18 | XMS_ITS | Continuity of Care Document ---
Author Organization [facility] Address [address] [place] [address] Phone Care Team Providers Care Cafeteria Cook Name Role Phone Ophelia Christiansen DNP Unavailable [...] - No Longer Active Procedures Procedure Date [facility] Offic/outpt E&m New Low-mod 20 [...] Diagnoses Date Provider Providers Copied on Encounter [facility], [address], [place], [place], [id number], [place] tel:[phone] [facility] CM ACUTE SINUSITIS Lizbet MARINO Ophelia. [address] [facility], [address], [place], [place], [address], [place]. tel:[phone] Referring Provider: Lucero Hall MD, [address] [facility] [address] [facility] [place], [address]. tel:[phone] Offic/outpt E&m New Low-mod 20 [facility], [address], [place], [place], [address], [place] tel:[phone] [facility] CM CORNEAL INJURY, SUPERFICIAL Laura MSN RN [facility]- Leann. [address], [place], [place], [address], [place]. tel:[phone] Family History Family Member Type Diagnosis Age At Onset No Information Payers Payer name Insurance type Covered green party ID Edna mane(s) [facility] [id number] Social History Type Description Quantity Date Captured [...]
--- OUTSIDE RECORDS SUMMARY | 2025-01-31 17:18 | XMS_ITS | Patient Health Record ---
Author Organization [facility] Address [address] [facility] [place] [address] Care Team Providers Care Brake Repairer Air Name Role Phone Juanjose Bowden MD Primary Care Provider Unavail Lang Trejo Unavailable [phone] Allergies No Known Allergies Reason For Referral [...] Status Risk Notes Problem Acquired hallux valgus (95335452) Hallux valgus (acquired), left foot (M20.12) Active confirmed Problem Acquired hallux valgus (40340881) Hallux valgus (acquired), right foot (M20.11) Active confirmed Vital Signs Height 6ft 5in in 07/13/2024 Weight 240 lbs 07/13/2024 BMI 28.46 kg/m2 07/13/2024 Encounters Encounter Location Date Provider Diagnosis [facility] [address] [facility] [place] [address] 07/13/2024 Lang Vela Pain in left foot [...] Coverage End Date [employer] [address] [place] [address] [id number] Sky Wynn Self - patient is the insured Medical (General) History Medical History History ICD Code asthma covid-19 Chicken pox Surgical History Surgery Date(Month/Year)
== END 2025-01-31 15:04 | disposition home or self-care (01) ==
LOC: HO.XRAY 15:03
PROVIDERS: PCP Internal Medicine; Visit Provider Physician Assistant Medical
DX: R05.9 Cough, unspecified (principal); R09.89 Other specified symptoms and signs involving the circulatory and respiratory systems
CPT/HCPCS: 0241U; 71046

== ENCOUNTER → 2025-01-31 15:25 | Outpatient (BNV) | payer BC, SELFPAY | PROVIDERS: PCP Internal Medicine; Visit Provider Radiology Diagnostic Radiology | DX: R05.9 Cough, unspecified (principal) | CPT/HCPCS: 71046 ==

== ENCOUNTER 2025-02-01 08:50 | Outpatient (AMB) | payer BC, SELFPAY ==
--- NOTE | 2025-02-01 08:54 | MHC.PC.OV ---
Vital Signs 02/01/25 08:55 Height 6 ft 5 in Weight 251 lb BMI 29.8 BP 122/82 Respiration 16 Pulse 62 Pulse Source Pulse Oximeter Temp 97.8 F Temp Source Temporal Artery Scan Pulse Oximetry (%) 99 Oxygen Delivery Method Room Air Intake Visit Reasons: sick visit Appeals Reviewer Veteran Required: No Accompanied by: Self / Same As Patient Allergies No Known Allergies Allergy (Verified 02/01/25 09:38) Medication List - Last Reconciled 02/01/25 by Jane Fair PA-C albuterol sulfate 90 mcg/actuation 2 puffs PO Q6H PRN azithromycin For 250 mg dose pack: take 500 mg today (day 1), then 250 mg for 4 days (days 2-5) PO loratadine-pseudoephedrine 5-120 mg ER (Claritin-D 12 Hour) 1 tab PO Q12H mometasone-formoterol 100-5 mcg/actuation (Dulera) 2 puffs inhalation BID montelukast 10 mg PO DAILY prednisone 40 mg (2 x 20 mg) PO DAILY 10 days Tobacco use date assessed: 02/01/25 Dental Screening Dental Screen Date: 02/01/25 Did you have a dental visit in the last 12 months?: Yes Did you have a dental problem in the last 6 months where you did not have access to dental care?: No [facility] Medical History (Updated 02/01/25 @ 10:02 by Jane Fair PA-C) Injury of articular cartilage of right knee Effusion of knee joint right Synovial cyst of popliteal space [Melendez], right knee Thoracic scoliosis Cough Medial meniscus tear Overweight (BMI 25.0-29.9) Tick bite Right knee pain Chronic pain History of deviated nasal septum Asthma Obstructive sleep apnea syndrome Surgical History History of nasal surgery History of wisdom tooth extraction Family History Father Heart attack History of heart artery stent Diabetes Mother No problems noted. Social History Housing: House Alcohol intake: current Alcohol intake frequency: 3 or more drinks per day Patient Tobacco Use Status: Never used Tobacco service: No Current occupational status: employed Cognitive needs: No Hearing needs: No Vision needs: No Questionnaire PHQ-9 Over the last 2 weeks, how often have you been bothered by any of the following problems? 1. Little interest or pleasure in doing things: not at all 2. Feeling down, depressed, or hopeless: not at all 3. Trouble falling or staying asleep, or sleeping too much: not at all 4. Feeling tired or having little energy: not at all 5. Poor appetite or overeating: not at all 6. Feeling bad about yourself - or that you are a failure or have let yourself or your family down: not at all 7. Trouble concentrating on things, such as reading the newspaper or watching television: not at all 8. Moving or speaking so slowly that other people could have noticed. Or the opposite - being so fidgety or restless that you have been moving around a lot more than usual: not at all 9. Thoughts that you would be better off or of hurting yourself in some way: not at all Total score: 0 Depression Screening Interpretation: Negative Depression Screening Done: Yes 25674 - PHQ-9 Billing: Yes Source: Developed by Drs. Juanjose Atkinson, Haley Sandra, Luis Fernando Osuna and colleagues, with an educational jacob from [employer]. Thrive Questionnaire Date Thrive assessed: 02/01/25 I am a: Patient What is your living situation today?: I have a steady place to live Within the past 12 months, did the food you bought not last and you didn't have the money to get more?: Never true Within the past 12 months, did you worry whether your food would run out before you got money to buy more?: Never true Do you have trouble paying for medicines?: No Do you have trouble getting transportation to medical appointments?: No Do you have trouble paying your heating and electricity bill?: No Do you have trouble taking care of your child, family member or friend?: No Do you have trouble with day-to-day activities such as bathing, preparing meals, shopping, managing finances, etc.?: No Are you currently unemployed and looking for a job?: No Are you interested in more education?: No THRIVE Score: 0 AUDIT C Alcohol Use Questionnaire (AUDIT-C) 1. How often do you have a drink containing alcohol?: 2-3 times a week 2. How many drinks containing alcohol do you have on a typical day when you are drinking?: 1 or 2 3. How often do you have six or more drinks on one occasion?: Never Total Score: 3 Score Reviewed/Action Taken: No HILTON-7 AMB Questionnaire HILTON-7 Date HILTON - 7 assessed: 02/01/25 Feeling nervous, anxious, or on edge: 0 = Not at all Not being able to stop or control worryin = Not at all Worrying too much about different things: 0 = Not at all Trouble relaxin = Not at all Being so restless that it is hard to sit still: 0 = Not at all Becoming easily annoyed or irritable: 0 = Not at all Feeling afraid as if something awful might happen: 0 = Not at all Total HILTON-7 score (0-4 normal; 5-9 mild; 10-14 moderate; 15-21 severe): 0 Source: Developed by Drs. Juanjose Atkinson, Haley Sandra, Luis Fernando Osuna and colleagues, with an educational jacob from [employer]. HILTON-7 Assessment Billing HILTON-7 Assessment Tool: HILTON-7 Assessment 65356 Physical exam (Primary Care) Vital Signs: Last Vital Signs Temp 97.8 F 02/01/25 08:55 Pulse 62 02/01/25 08:55 Resp 16 02/01/25 08:55 BP 122/82 02/01/25 08:55 Pulse Ox 99 02/01/25 08:55 Oxygen Delivery Method Room Air 02/01/25 08:55 Care Plan Goal for BP management: <130/80 BMI result Body Mass Index 29.8 BMI Assessment/Plan discussion: High BMI High, discussed plan: lifestyle, weight reduction, dietary, physical activity and alcohol moderation Tobacco/Smoking Status: Tobacco use Status Tobacco use date assessed 02/01/25 02/01/25 09:12 Patient Tobacco Use Status Never used Tobacco 02/01/25 09:12 PHQ-9: PHQ-9 Score PHQ-9: Total score 0 02/01/25 09:12 Depression Screening Interpretation: Negative Thrive Assessment: Date of Thrive Assessment Date Thrive assessed 02/01/25 02/01/25 09:12 Coding Level of Care Code Est Pt Level 4 (61052) Complex EM visit Add On G2211 Diagnoses Cough R05.9 Asthma J45.909 Obstructive sleep apnea syndrome G47.33 Thoracic scoliosis M41.9 Right knee pain M25.561 Synovial cyst of popliteal space [Melendez], right knee M71.21 Effusion of knee joint right M25.461 Injury of articular cartilage of right knee S89.81XA Medial meniscus tear S83.249A Additional Codes PHQ-9 - 41002 - PHQ-9 Billing: Yes ([id number]) HILTON-7 Assessment Billing - HILTON-7 Assessment Tool: HILTON-7 Assessment 45896 ([id number]) Assessment & Plan Assessment & Plan (1) Cough: Code(s): R05.9 - Cough, unspecified Category: Medical Plan: Patient most likely cough from asthma. May have some bronchitis due to sputum production. Will start on Z-Jason, course of steroids. Will refill the patient's Dulera, montelukast. Will order pulmonary function test and refer to pulmonology. Chest x-ray obtained and negative for any acute processes such as pneumonia, nodules or any other acute processes. COVID/RSV/flu swab is negative. Condition is chronic and stable continue to monitor. (2) Asthma: Code(s): J45.909 - Unspecified asthma, uncomplicated Category: Medical Plan: Patient most likely cough from asthma. May have some bronchitis due to sputum production. Will start on Z-Jason, course of steroids. Will refill the patient's Dulera, montelukast. Will order pulmonary function test and refer to pulmonology. Chest x-ray obtained and negative for any acute processes such as pneumonia, nodules or any other acute processes. COVID/RSV/flu swab is negative. Condition is chronic and stable continue to monitor. (3) Obstructive sleep apnea syndrome: Code(s): G47.33 - Obstructive sleep apnea (adult) (pediatric) Category: Medical Plan: Condition is chronic and stable continue to monitor. (4) Thoracic scoliosis: Code(s): M41.9 - Scoliosis, unspecified Category: Medical Plan: Chest x-ray obtained on 01/31/2025 revealed thoracic scoliosis. Patient denies any complaints related to this. Condition is chronic and stable continue to monitor. (5) Right knee pain: Comment: MRI on 01/28/2025 revealed cartilage fissure involving the lateral aspect of the patellar cartilage. Moderate joint effusion. 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 Condition is chronic and stable continue to monitor. (6) Synovial cyst of popliteal space [Melendez], right knee: Code(s): M71.21 - Synovial cyst of popliteal space [Melendez], right knee Category: Medical Plan: Patient referred to physical therapy and orthopedic surgeons. Condition is chronic and stable continue to monitor. (7) Effusion of knee joint right: Code(s): M25.461 - Effusion, right knee Category: Medical Plan: Patient referred to physical therapy and orthopedic surgeons. Condition is chronic and stable continue to monitor. (8) Injury of articular cartilage of right knee: Code(s): S89.81XA - Other specified injuries of right lower leg, initial encounter Category: Medical Plan: Patient referred to physical therapy and orthopedic surgeons. Condition is chronic and stable continue to monitor. (9) Medial meniscus tear: Code(s): S83.249A - Other tear of medial meniscus, current injury, unspecified knee, initial encounter Category: Medical Plan: Patient referred to physical therapy and orthopedic surgeons. Condition is chronic and stable continue to monitor. Plan Plan Patient was informed and verbally consented to the use of an ambient scribe for clinic note documentation during this visit. 1. Asthma Regular use of Dulera inhaler prescribed to improve asthma control. Montelukast continued in regimen. Albuterol for acute exacerbations only. Considering referral for pulmonology evaluation for detailed assessment after cannabis exposure. 2. Persistent Cough Initiating prednisone for inflammation control. Offering azithromycin as needed. Claritin D for potential allergen management. Observing improvements during [place] work trip. 3. Scoliosis, unspecified, Observation and monitoring, with pending orthopedic and physical therapy referrals for further assessment. 4. Right knee pain MRI on 01/28/2025 revealed cartilage fissure involving the lateral aspect of the patellar cartilage. Moderate joint effusion. Small Melendez's cyst. Horizontal tear with the medial meniscus involving the anterior horn body and posterior horn. Chronic partial tear of the origin of the fibular collateral ligament. Patient awaiting for PT and orthopedic surgeons to call him for an appointment. Discussion Notes During our visit, I discussed with the patient the probable diagnosis and management plan for his persistent cough and newly diagnosed asthma. We reviewed the continuation of montelukast and the renewed prescription for Dulera inhaler targeting symptom control. I introduced the possibility of an antibiotic course with a Z-Jason upon further evaluation of his symptoms. We discussed the influence of prior smoking and environmental factors possibly contributing to his condition, consenting to further pulmonology assessment. Chest X-rays showed no abnormalities, negating immediate concern for infection or malignancy. We reviewed the benefits and risks of steroids and encouraged follow-up should symptoms persist or worsen. Details regarding the completion of referrals and forthcoming vacation plans were acknowledged. Orders: Orders PFT pulmonary function test Today G47.33 - Obstructive sleep apnea (adult) (pediatric), J45.909 - Unspecified asthma, uncomplicated, R05.9 - Cough, unspecified Referrals Pulmonology Referral G47.33 - Obstructive sleep apnea (adult) (pediatric), J45.909 - Unspecified asthma, uncomplicated, R05.9 - Cough, unspecified Medications: New loratadine-pseudoephedrine 5-120 mg ER (Claritin-D 12 Hour) 1 tab PO Q12H 30 tabs 0RF prednisone 40 mg (2 x 20 mg) PO DAILY 10 days 20 tabs 0RF azithromycin For 250 mg dose pack: take 500 mg today (day 1), then 250 mg for 4 days (days 2-5) PO 6 tabs 0RF mometasone-formoterol 100-5 mcg/actuation (Dulera) 2 puffs inhalation BID 13 grams 3RF montelukast 10 mg PO DAILY 90 tabs 1RF azithromycin For 250 mg dose pack: take 500 mg today (day 1), then 250 mg for 4 days (days 2-5) PO 6 tabs 0RF loratadine-pseudoephedrine 5-120 mg ER (Claritin-D 12 Hour) 1 tab PO Q12H 30 tabs 0RF prednisone 40 mg (2 x 20 mg) PO DAILY 10 days 20 tabs 0RF Refilled montelukast 10 mg PO DAILY 90 tabs 1RF mometasone-formoterol 100-5 mcg/actuation (Dulera) 2 puffs inhalation BID 13 grams 3RF Patient Instructions: Patient Instructions - Use the Dulera inhaler twice daily as prescribed for asthma management. - Continue taking montelukast as part of asthma therapy. - Use the albuterol inhaler strictly for sudden asthma symptoms. - Complete prescribed prednisone course for asthma exacerbation control. - Consider starting the Z-Jason if the cough persists without improvement. - Take Claritin D as needed to manage potential allergenic symptoms. - Monitor symptoms, and seek follow-up if worsening occurs. - Be aware of environmental triggers, and avoid cannabis use. - Check for pending ortho and PT clinic calls, and contact them for appointment scheduling if not heard back soon. - Attend the primary care follow-up appointment scheduled for February 22. - Engage in usual activity, but monitor for any increase in respiratory symptoms during work trip. - Follow lifestyle and medication instructions, and keep track of symptoms while traveling to ensure proper management. Scribe Plan - Not visible on output: History of Present Illness The patient is a 39-year-old male presenting with a persistent cough and hx of asthma. Cough symptoms began intermittently in July and are accompanied by mucus production. The patient?s has remarked on the asthmatic nature of the cough, described as wheezing and difficulty breathing. Overuse of an albuterol inhaler was noted, indicating increased asthma symptom frequency. The patient suspects smoking cannabis vapors, legal in [place], may have triggered symptoms, leading to cessation. No antibiotics have been taken since late last year. Examination of home environment revealed no mold or exposure to irritants. Asthma management includes montelukast and past benefit from inhaled corticosteroids, though not used recently. Recent chest X-ray reported no abnormalities, with only mild scoliosis detected. The history of regular athletic activity, notably in rowing and [employer], contrasts with the recent asthma diagnosis, raising concerns regarding the impact of environmental factors on pulmonary health. 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 - Family Status: . - Housing: Recently moved to a new house in 2017 without known mold exposure. - Substance Use: Intermittent past use of cannabis, recently discontinued. - Exercise/Activity Level: Engages regularly in athletic activities, including rowing and [employer]. Review of Systems - Respiratory: Reports a persistent cough and increased use of an albuterol inhaler. Denies any chest pain or significant leg swelling. - Nasal: Reports mild postnasal drip. Physical Exam Appearance: Alert. Oriented X3. No acute distress. Head: Normal external exam. Normocephalic. Atraumatic. Eyes: Pupils are equal, round, and reactive to light. Extraocular movements intact. Conjunctiva and sclera normal. Eyelids normal. Throat: Pharynx normal. Uvula midline. Moist mucous membranes. Neck: Normal inspection. Neck supple. Full range of motion. Cardiovascular: Normal heart rate and rhythm. Heart sound normal. No murmurs noted. Pulses normal throughout. Respiratory: No respiratory distress. Painless inspiration. Breath sounds coarse. No wheezes/rales/rhonchi noted. Chest nontender. No accessory muscle usage noted or decreased air movement noted. Back: Full range of motion noted. Mild scoliosis noted in the upper back. Skin: Skin warm and dry. Extremities: No lower extremity edema. Extremities exhibit normal range of motion. Extremities nontender. Neuro: Oriented X 3. No motor deficit. No sensory deficit. Reflexes normal. Results - Imaging: Recent chest X-ray showed no significant abnormalities. Confirmed normal heart size and only mild scoliosis. No signs of pneumonia or nodules. - COVID-19/RSV/flu swab negative.
[2025-02-01 08:55] VITALS: BP 122/82; PULSE 62; RESP 16; TEMP 36.6; O2SAT 99; BMI 29.8
--- OUTSIDE RECORDS SUMMARY | 2025-02-01 09:42 | XMS_ITS | Continuity of Care Document ---
Author Organization [facility] Address [address] [place] [address] Phone Care Team Providers Care Active Directory Systems Administrator Name Role Phone Ophelia Christiansen DNP Unavailable [...] - No Longer Active Procedures Procedure Date [facility] Offic/outpt E&m New Low-mod 20 [...] Diagnoses Date Provider Providers Copied on Encounter [facility], [address], [place], [place], [id number], [place] tel:[phone] [facility] CM ACUTE SINUSITIS Lizbet MARINO Ophelia. [address], [address], [place], [place], [id number], [place]. tel:[phone] Referring Provider: Lucero Hall MD, [address] [facility], [place], [address]. tel:[phone] Offic/outpt E&m New Low-mod 20 [facility], [address], [place], [place], [id number], [place] tel:[phone] [facility] CM CORNEAL INJURY, SUPERFICIAL Laura MSN RN [facility]- [place]. [address], [place], [place], [address], [place]. tel:[phone] Family History Family Member Type Diagnosis Age At Onset No Information Payers Payer name Insurance type Covered libertarian ID Edna mane(s) [facility] [id number] Social History Type Description Quantity Date Captured [...]
--- OUTSIDE RECORDS SUMMARY | 2025-02-01 09:42 | XMS_ITS | Patient Health Record ---
Author Organization [facility] Address [address] [facility] [place] [address] Care Team Providers Care Public Health Social Worker Name Role Phone Juanjose Bowden MD Primary Care Provider Unavail Lang Trejo Unavailable [phone] Allergies No Known Allergies Reason For Referral [...] Status Risk Notes Problem Acquired hallux valgus (89264690) Hallux valgus (acquired), left foot (M20.12) Active confirmed Problem Acquired hallux valgus (96543617) Hallux valgus (acquired), right foot (M20.11) Active confirmed Vital Signs Height 6ft 5in in 07/13/2024 Weight 240 lbs 07/13/2024 BMI 28.46 kg/m2 07/13/2024 Encounters Encounter Location Date Provider Diagnosis [facility] [address] [facility] [place] [address] 07/13/2024 Lang Vela Pain in left foot [...] Coverage End Date [employer] [address] [place] [address] [phone] [id number] Sky Wynn Self - patient is the insured Medical (General) History Medical History History ICD Code asthma covid-19 Chicken pox Surgical History Surgery Date(Month/Year)
--- OUTSIDE RECORDS SUMMARY | 2025-02-01 09:42 | XMS_ITS ---
Author Organization [facility] [place] Address [address] [place] [address] Care Team Providers Care Poleyard Supervisor Name Role Phone Dennise ALFORD, Juanjose Primary Care Provider Unavail Lang Trejo Unavailable [phone] Gage Encounters Encounter Location Date Provider Diagnosis [facility] [address] [place] [address] 07/02/2024 Lang Vela Plan Of Treatment No Information Progress Notes * Syk WYNN CDOB:1984 (39 yo M)Acc No.[id number]:07/02/2024 Progress Notes Patient:?Sky WYNN Provider:?Lang Vela DPM :1985???Age:38 Y???Sex:Male Milo e:07/02/2024 Address:[address] [place] [address] [place] [id number] Pcp:Juanjose Bowden MD Subjective: * Chief Complaints: [...] Vela DPM Date:?2023 Generated for Stacey cruz/Natalie/Rachelitting on:?02/01/2025 09:42 AM EDT
--- OUTSIDE RECORDS SUMMARY | 2025-02-01 09:43 | XMS_ITS ---
Author Organization [facility] cec[place] Address [address] [facility] [place] [address] Care Team Providers Care Trimming Cutter Machine Name Role Phone Juanjose Bowden MD Primary Care Provider Unavail Lang Trejo Unavailable [phone] Allergies No Known Allergies REASON FOR VISIT [...] Status Risk Notes Problem Acquired hallux valgus (35466257) Hallux valgus (acquired), left foot (M20.12) Active confirmed Problem Acquired hallux valgus (45103858) Hallux valgus (acquired), right foot (M20.11) Active confirmed Vital Signs Height 6ft 5in in 07/13/2024 Weight 240 lbs 07/13/2024 BMI 28.46 kg/m2 07/13/2024 Encounters Encounter Location Date Provider Diagnosis [facility] [address] [place] [address] 07/13/2024 Lang Vela Pain in left foot [...] * Sky WYNN CDOB:1984 (38 yo M)Acc No.[id number]:07/13/2024 Progress Notes Patient:?Sky Wynn Provider:?Lang Vela DPM :1985???Age:38 Y???Sex:Male Milo e:07/13/2024 Address:[address] [place], [place] [id number] Pcp:Juanjose Bowden MD Subjective: * Chief Complaints: [...] cups per day. ?Marital status: . ?Occupation: [employer]/ [employer]. * Medications:?None * Allergies:?N.K.D.A.yes[Aller gies Verified] Objective: [...] ray : Foot, right 3V * Procedure Codes:?99294 X-RAY EXAM OF LEFT FOOT 3V, Modifiers: 26 , [id number] X-RAY EXAM OF RIGHT FOOT 3V, Modifiers: [...] Vela DPM Date:?2023 Generated for Stacey cruz/Natalie/Kaylin on:?02/01/2025 09:42 AM EDT History and Physical Notes * HPI [...]
== END 2025-02-01 09:28 | disposition home or self-care (01) ==
LOC: HO.HMCSH 08:50
PROVIDERS: PCP Internal Medicine; Visit Provider Physician Assistant Medical
DX: R05.9 Cough, unspecified (principal); J45.909 Unspecified asthma, uncomplicated; G47.33 Obstructive sleep apnea (adult) (pediatric); M41.9 Scoliosis, unspecified; M25.561 Pain in right knee; M71.21 Synovial cyst of popliteal space [Baker], right knee; M25.461 Effusion, right knee; S89.81XA Other specified injuries of right lower leg, initial encounter; S83.249A Other tear of medial meniscus, current injury, unspecified knee, initial encounter

== ENCOUNTER → 2025-02-01 08:50 | Outpatient (BNVA) | payer BC, SELFPAY | PROVIDERS: PCP Internal Medicine; Visit Provider Physician Assistant Medical | DX: R05.9 Cough, unspecified (principal); J45.909 Unspecified asthma, uncomplicated; G47.33 Obstructive sleep apnea (adult) (pediatric); M41.9 Scoliosis, unspecified; M25.561 Pain in right knee; M71.21 Synovial cyst of popliteal space [Baker], right knee; M25.461 Effusion, right knee; S89.81XA Other specified injuries of right lower leg, initial encounter; S83.249A Other tear of medial meniscus, current injury, unspecified knee, initial encounter; X58.XXXA Exposure to other specified factors, initial encounter; Y93.9 Activity, unspecified; Y92.9 Unspecified place or not applicable; Y99.9 Unspecified external cause status | CPT/HCPCS: 96127 ==

== ENCOUNTER 2025-03-10 09:56 | Outpatient (REF) | payer BC, SELFPAY ==
--- NOTE | 2025-03-10 09:58 | PFT_ITS ---
Indication: Cough Spirometry [FEV1 to FVC 82%; FEV1 5.6 L; FVC 6.8 L. No significant response to bronchodilators noted.] Lung Volumes [Total lung capacity 90% predicted; residual volume 100% predicted] Flow Volume Loops [Normal lung mechanics] Comparisons [none] Interpretation [No obstructive nor restrictive ventilatory defects identified. No significant response to bronchodilators noted. His flow volume loop is consistent with normal lung mechanics. Lung volumes and diffusing capacity also within normal limits. No clear explanation for the patient's symptoms. Consider a methacholine challenge if asthma is in differential. Clinical correlation warranted.] MTDD
[2025-03-10 10:42] VITALS: PULSE 72; O2SAT 100
--- OUTSIDE RECORDS SUMMARY | 2025-03-10 11:33 | XMS_ITS | Continuity of Care Document ---
Author Organization [facility] Address [address] [place] [address] Phone Care Team Providers Care Shine Worker Name Role Phone Ophelia Christiansen DNP Unavailable [...] - No Longer Active Procedures Procedure Date [facility] Offic/outpt E&m New Low-mod 20 [...] Diagnoses Date Provider Providers Copied on Encounter [facility], [address], [place], [place], [id number], [place] tel:[phone] [facility] CM ACUTE SINUSITIS Lizbet MARINO Ophelia. [address], [address], [place], [place], [address], [place]. tel:[phone] Referring Provider: Lucero Hall MD, [address] [facility], [place], [address]. tel:[phone] Offic/outpt E&m New Low-mod 20 [facility], [address], [place], [place], [id number], [place] tel:[phone] [facility] CM CORNEAL INJURY, SUPERFICIAL Laura MSN RN [facility]- Leann. [address], [place], [place], [address], [place]. tel:[phone] Family History Family Member Type Diagnosis Age At Onset No Information Payers Payer name Insurance type Covered democrat ID Edna mane(s) [facility] [id number] Social History Type Description Quantity Date Captured [...]
== END 2025-03-10 09:57 | disposition home or self-care (01) ==
LOC: HO.RESP 09:56
PROVIDERS: PCP Internal Medicine; Visit Provider Physician Assistant Medical
DX: R05.9 Cough, unspecified (principal); J45.909 Unspecified asthma, uncomplicated; G47.33 Obstructive sleep apnea (adult) (pediatric)
CPT/HCPCS: 94010; 94640; 94727; 94729

== ENCOUNTER → 2025-03-10 09:58 | Outpatient (BNV) | payer BC, SELFPAY | PROVIDERS: PCP Internal Medicine; Visit Provider Hospitalist | DX: R05.9 Cough, unspecified (principal) | CPT/HCPCS: 94060; 94727; 94729 ==

== ENCOUNTER 2025-03-21 09:42 | Outpatient (AMB) | payer BC, SELFPAY ==
--- NOTE | 2025-03-20 19:04 | A.OFFVIS_ITS ---
Vital Signs 03/21/25 09:49 Height 6 ft 5 in Weight 244 lb 11.41 oz BMI 29.0 BP 122/68 Blood Pressure Location Lt brachial Position Sitting Pulse 66 Pulse Source Pulse Oximeter Pulse Oximetry (%) 98 Oxygen Delivery Method Room Air Intake Visit Reasons: cough/asthma/gustavo Director Sports Required: No Leather Flesher: Leather Flesher offered & declined Accompanied by: Self / Same As Patient Allergies No Known Allergies Allergy (Verified 03/21/25 09:55) Medication List - Last Reconciled 03/21/25 by Courtney Simpson LPN albuterol sulfate 90 mcg/actuation 2 puffs PO Q6H PRN loratadine-pseudoephedrine 5-120 mg ER (Claritin-D 12 Hour) 1 tab PO Q12H mometasone-formoterol 100-5 mcg/actuation (Dulera) 2 puffs inhalation BID montelukast 10 mg PO DAILY HPI HPI cough/asthma/gustavo: Details: Sky is a pleasant 39-year-old male, never smoker, with underlying history of asthma and obstructive sleep apnea. He was referred by PCP for pulmonary evaluation. He reports history of asthma, recently diagnosed based on clinical symptoms. He is currently managed on Dulera and Singulair with good effect [place] had exacerbation in January with URI. He reported symptoms were minimally improved with albuterol ultimately prescribed a zpak and prednisone on 02/01 with resolution of symptoms. He reports symptoms are triggered by cold weather and has a prolonged cough after URI. He does note that respiratory symptoms seem to have started after using a vape pen with marijuana a few years ago. He denies second hand smoke exposure. He reports recurrent URI as a child. Recent PFT and CXR performed, both unremarkable. PCP did enter order for a methacholine challenge to assess hyperactivity of airways which has yet to be scheduled. He denies seasonal allergies. He denies any occupational exposures. He denies any pertinent family history. Patient reports h/o mild to moderate GUSTAVO dx on sleep study 5-6 years ago, however patient lost 40lbs since then and currently denies any symptoms suggestive of GUSTAVO. [facility] Medical History (Updated 02/01/25 @ 10:02 by Jane Fair PA-C) Injury of articular cartilage of right knee Effusion of knee joint right Synovial cyst of popliteal space [Melendez], right knee Thoracic scoliosis Cough Medial meniscus tear Overweight (BMI 25.0-29.9) Tick bite Right knee pain Chronic pain History of deviated nasal septum Asthma Obstructive sleep apnea syndrome Surgical History History of nasal surgery History of wisdom tooth extraction Family History Father Heart attack History of heart artery stent Diabetes Mother No problems noted. Social History Housing: House Alcohol intake: current Alcohol intake frequency: 3 or more drinks per day Patient Tobacco Use Status: Never used Tobacco service: No Current occupational status: employed Cognitive needs: No Hearing needs: No Vision needs: No Review of Systems Const Denies chills, Denies excessive sweating, Denies fever(s), Denies headache(s) and Denies night sweats Eyes Denies dry eyes, Denies irritation and Denies itchy eyes ENT Reports Normal hearing present, Denies headache(s), Denies nasal congestion, Denies nasal discharge, Denies post nasal drip and Denies sore throat Card Denies chest pain, Denies chest pain at rest, Denies chest pain with activity, Denies claudication, Denies leg edema, Denies dyspnea, Denies dyspnea on exertion, Denies orthopnea and Denies paroxysmal nocturnal dyspnea Resp Denies chest congestion, Denies cough, Denies excessive phlegm production, Denies pain on inspiration, Denies pain with cough, Denies dyspnea, Denies dyspnea on exertion, Denies stridor and Denies wheezing Musc Denies myalgias Neuro Reports Normal hearing present and Denies headache(s) Endo Denies excessive sweating Ganga/Lymph Denies lymphadenopathy Aller/Immun Denies itchy eyes, Denies seasonal rhinorrhea and Denies wheezing Physical Exam Vital Signs: Last Vital Signs Pulse 66 03/21/25 09:49 BP 122/68 03/21/25 09:49 Pulse Ox 98 03/21/25 09:49 Oxygen Delivery Method Room Air 03/21/25 09:49 BMI result Body Mass Index 29.0 Const General: cooperative, healthy appearing, comfortable, no acute distress, well developed and alert Orientation/consciousness: patient oriented x3 Limitations: no limitations HEENT Head: Yes normal to inspection, Yes normocephalic and Yes atraumatic Ears: hearing grossly normal bilaterally and external ears normal Eyes General: appearance normal, both eyes and all related structures Eyelids: Yes eyelids normal Sclerae: sclerae normal EOM: EOMs intact bilaterally Neck Neck: Yes normal visual inspection and Yes no lymphadenopathy Lymphatic: no lymphadenopathy noted Chest Chest palpation & inspection: normal inspection of the chest Resp Effort & Inspection: normal respiratory effort, able to speak in complete sentences, no audible wheezes, no cough, no stridor, not tachypneic, no tripod positioning and no use of accessory muscles Auscultation: clear to auscultation bilaterally Cardio Jugular venous distension: no JVD Rate: regular rate Rhythm: regular rhythm Skin Other: warm, dry General skin exam: no rashes or lesions noted Neuro General: patient oriented x3 Cranial nerves: Yes Normal hearing present Cognition (Neuro): normal cognition Gait exam (Neuro): Normal gait present Extrem General: Yes normal to inspection, Yes capillary refill normal, Yes no clubbing, cyanosis or edema and Yes no pedal edema Psych Appearance: grossly normal and well kempt Speech and movement: Normal speech and movement present and Clear speech present Affect: normal affect Attitude: cooperative Thought process: Normal thought process present Thought content: Normal thought content present Insight: Good insight present (Psych) Judgement: Good judgement present (Psych) Assessment & Plan Assessment & Plan (1) Asthma: Code(s): J45.909 - Unspecified asthma, uncomplicated Category: Medical Plan Sky presents for pulmonary evaluation for underlying asthma. Reviewed PFT which revealed no obstructive nor restrictive ventilatory defects identified. No significant response to bronchodilators noted. His flow volume loop is consistent with normal lung mechanics. Lung volumes and diffusing capacity also within normal limits. PCP ordered a methacholine challenge as clinical picture suggestive of asthma. Will increase Dulera at this time and encouraged patient to increase to 2 inhalations BID if symptoms return. Will hold off on repeat testing for GUSTAVO, as patient does not report any symptoms at this time. He is aware to call if symptoms recur. All questions were answered and patient is in agreement of plan. Will follow up to review results of methacholine or sooner if needed. Medications: New mometasone-formoterol 200-5 mcg/actuation (Dulera) 2 puffs inhalation BID 13 grams 6RF Discontinued mometasone-formoterol 100-5 mcg/actuation (Dulera) Discontinued Reason: Patient Completed Course 2 puffs inhalation BID 13 grams 3RF Coding Level of Care Code New Pt Level 3 (19151) Diagnoses Asthma J45.909
[2025-03-21 09:49] VITALS: BP 122/68; PULSE 66; O2SAT 98; BMI 29.0
--- OUTSIDE RECORDS SUMMARY | 2025-03-21 10:54 | XMS_ITS | Patient Health Record ---
Author Organization [facility] Address [address] [address] Care Team Providers Care Rolls Mill Operator Name Role Phone Juanjose Bowden MD Primary Care Provider Unavail Lang Trejo Unavailable [phone] Allergies No Known Allergies Reason For Referral [...] Status Risk Notes Problem Acquired hallux valgus (81110000) Hallux valgus (acquired), left foot (M20.12) Active confirmed Problem Acquired hallux valgus (91724248) Hallux valgus (acquired), right foot (M20.11) Active confirmed Vital Signs Height 6ft 5in in 07/13/2024 Weight 240 lbs 07/13/2024 BMI 28.46 kg/m2 07/13/2024 Encounters Encounter Location Date Provider Diagnosis [facility] [address] [place] [address] 07/13/2024 Lang Vela Pain in left foot [...] Coverage End Date [employer] [address] [place] [address] [phone] [id number] Sky Wynn Self - patient is the insured Medical (General) History Medical History History ICD Code asthma covid-19 Chicken pox Surgical History Surgery Date(Month/Year)
--- OUTSIDE RECORDS SUMMARY | 2025-03-21 10:54 | XMS_ITS ---
Author Organization [facility] [place] Address [address] [place] [address] Care Team Providers Care Waste Paper Hammermill Operator Name Role Phone Dennise ALFORD, Juanjose Primary Care Provider Unavail Lang Trejo Unavailable [phone] Gage Encounters Encounter Location Date Provider Diagnosis [facility] [address] [place] [address] 07/02/2024 Lang Vela Plan Of Treatment No Information Progress Notes * Sky WYNN CDOB:1984 (39 yo M)Acc No.[id number]:07/02/2024 Progress Notes Patient:?Sky WYNN Provider:?Lang Vela DPM :1985???Age:38 Y???Sex:Male Milo e:07/02/2024 Address:[address] [place] [id number] Pcp:Juanjose Bowden MD Subjective: * Chief Complaints: [...] Vela DPM Date:?2023 Generated for Stacey cruz/Natalie/Rachelitting on:?03/21/2025 10:54 AM EDT
--- OUTSIDE RECORDS SUMMARY | 2025-03-21 10:54 | XMS_ITS | Continuity of Care Document ---
Author Organization [facility] Address [address] [place] [address] Phone Care Team Providers Care Harvesting Supervisor Name Role Phone Ophelia Christiansen DNP Unavailable [...] - No Longer Active Procedures Procedure Date [facility] Offic/outpt E&m New Low-mod 20 [...] Diagnoses Date Provider Providers Copied on Encounter [facility], [address], [place], [place], [id number], [place] tel:[phone] [facility] CM ACUTE SINUSITIS Lizbet MARINO Ophelia. [address], [address], [place], [place], [id number], [place]. tel:[phone] Referring Provider: Lucero Hall MD, [address] [facility], [place], [address]. tel:[phone] Offic/outpt E&m New Low-mod 20 [facility], [address], [place], [place], [id number], [place] tel:[phone] [facility] CM CORNEAL INJURY, SUPERFICIAL Laura MSN RN [facility]. [address], [place], [place], [id number], [place]. tel:[phone] Family History Family Member Type Diagnosis Age At Onset No Information Payers Payer name Insurance type Covered libertarian ID Edna mane(s) [facility] [id number] Social History Type Description Quantity Date Captured [...]
--- OUTSIDE RECORDS SUMMARY | 2025-03-21 10:54 | XMS_ITS ---
Author Organization [facility] Address [address] [facility] [place] [address] Care Team Providers Care Meter Reading Clerk Name Role Phone Juanjose Bowden MD Primary Care Provider Unavail Lang Trejo Unavailable [phone] Allergies No Known Allergies REASON FOR VISIT [...] Status Risk Notes Problem Acquired hallux valgus (66264946) Hallux valgus (acquired), left foot (M20.12) Active confirmed Problem Acquired hallux valgus (50041178) Hallux valgus (acquired), right foot (M20.11) Active confirmed Vital Signs Height 6ft 5in in 07/13/2024 Weight 240 lbs 07/13/2024 BMI 28.46 kg/m2 07/13/2024 Encounters Encounter Location Date Provider Diagnosis [facility] [address] [facility] [place] [address] 07/13/2024 Lang Vela Pain in left foot [...] * Sky WYNN CDOB:1984 (38 yo M)Acc No.[id number]:07/13/2024 Progress Notes Patient:?Sky Wynn Provider:?Lang Vela DPM :1985???Age:38 Y???Sex:Male Milo e:07/13/2024 Address:[address] [place], [place] [id number] Pcp:Juanjose Bowden MD Subjective: * Chief Complaints: [...] cups per day. ?Marital status: . ?Occupation: [employer]. * Medications:?None * Allergies:?N.K.D.A.yes[Aller gies Verified] Objective: [...] ray : Foot, right 3V * Procedure Codes:?98974 X-RAY EXAM OF LEFT FOOT 3V, Modifiers: 26 , [id number] X-RAY EXAM OF RIGHT FOOT 3V, Modifiers: [...] Vela DPM Date:?2023 Generated for Stacey cruz/Natalie/Kaylin on:?03/21/2025 10:54 AM EDT History and Physical Notes * [...]
== END 2025-03-21 10:25 | disposition home or self-care (01) ==
LOC: HO.HPS 09:43
PROVIDERS: PCP Internal Medicine; Referring Provider Internal Medicine; Visit Provider Nurse Practitioner Family
DX: J45.909 Unspecified asthma, uncomplicated (principal)
CPT/HCPCS: 99203

== ENCOUNTER 2025-05-16 09:02 | Outpatient (AMB) | payer BC, SELFPAY ==
--- OUTSIDE RECORDS SUMMARY | 2012-11-25 13:00 | XMS_ITS | Continuity of Care Document ---
Author Organization [facility] Address [address] [place] [address] Phone Care Team Providers Care Digital Intern Name Role Phone Ophelia Christiansen DNP Unavailable [...] - No Longer Active Procedures Procedure Date [facility] Offic/outpt E&m New Low-mod 20 [...] Diagnoses Date Provider Providers Copied on Encounter [facility], [address], [place], [place], [id number], [place] tel:[phone] [facility] CM ACUTE SINUSITIS Lizbet MARINO Ophelia. [address], [address], [place], [place], [id number], [place]. tel:[phone] Referring Provider: Lucero Hall MD, [address] [facility] [place], [address]. tel:[phone] Offic/outpt E&m New Low-mod 20 [facility], [address], [place], [place], [id number], [place] tel:[phone] [facility] CM CORNEAL INJURY, SUPERFICIAL Laura MSN RN [facility]- [place]. [address], [place], [place], [id number], [place]. tel:[phone] Family History Family Member Type Diagnosis Age At Onset No Information Payers Payer name Insurance type Covered democrat ID Edna mane(s) [facility] [id number] Social History Type Description Quantity Date Captured [...]
--- NOTE | 2025-05-16 09:06 | MHC.OFFVIS ---
Vital Signs 05/16/25 09:07 Height 6 ft 5 in Weight 242 lb 8.136 oz BMI 28.8 BP 108/62 Blood Pressure Location Lt brachial Position Sitting Pulse 71 Pulse Source Pulse Oximeter Pulse Oximetry (%) 96 Oxygen Delivery Method Room Air Intake Visit Reasons: Cough/Asthma/GUSTAVO Allergies No Known Allergies Allergy (Verified 05/16/25 09:12) HPI HPI Cough/Asthma/GUSTAVO: Details: Sky is a pleasant 39-year-old male, never smoker, prior minimal vaping history with underlying asthma. He has been doing well on Dulera 200 mcg 1 inhalation daily, in addition to Singulair, rarely using albuterol MDI. He does note using albuterol with moderate exertion on occasion however has not had to use in quite some time. Previously using daily antihistamine during the spring but discontinued about two weeks ago. He was sent by PCP for methacholine challenge however patient symptoms managed at [facility], will defer at this time. He denies any visits to urgent care or hospitalizations related to respiratory distress. [facility] Medical History (Updated 02/01/25 @ 10:02 by Jane Fair PA-C) Injury of articular cartilage of right knee Effusion of knee joint right Synovial cyst of popliteal space [Melendez], right knee Thoracic scoliosis Cough Medial meniscus tear Overweight (BMI 25.0-29.9) Tick bite Right knee pain Chronic pain History of deviated nasal septum Asthma Obstructive sleep apnea syndrome Surgical History History of nasal surgery History of wisdom tooth extraction Family History Father Heart attack History of heart artery stent Diabetes Mother No problems noted. Social History Housing: House Alcohol intake: current Alcohol intake frequency: 3 or more drinks per day Patient Tobacco Use Status: Never used Tobacco service: No Current occupational status: employed Cognitive needs: No Hearing needs: No Vision needs: No Review of Systems Const Denies chills, Denies excessive sweating, Denies fever(s), Denies headache(s) and Denies night sweats Eyes Denies dry eyes, Denies irritation and Denies itchy eyes ENT Reports Normal hearing present, Denies headache(s), Denies nasal congestion, Denies nasal discharge, Denies post nasal drip and Denies sore throat Card Denies chest pain, Denies chest pain at rest, Denies chest pain with activity, Denies claudication, Denies leg edema, Denies dyspnea, Denies dyspnea on exertion, Denies orthopnea and Denies paroxysmal nocturnal dyspnea Resp Denies chest congestion, Denies cough, Denies excessive phlegm production, Denies pain on inspiration, Denies pain with cough, Denies dyspnea, Denies dyspnea on exertion, Denies stridor and Denies wheezing Musc Denies myalgias Neuro Reports Normal hearing present and Denies headache(s) Endo Denies excessive sweating Ganga/Lymph Denies lymphadenopathy Aller/Immun Denies itchy eyes, Denies seasonal rhinorrhea and Denies wheezing Physical Exam Const General: cooperative, healthy appearing, comfortable, no acute distress, well developed and alert Orientation/consciousness: patient oriented x3 Limitations: no limitations HEENT Head: Yes normal to inspection, Yes normocephalic and Yes atraumatic Ears: hearing grossly normal bilaterally and external ears normal Eyes General: appearance normal, both eyes and all related structures Eyelids: Yes eyelids normal Sclerae: sclerae normal EOM: EOMs intact bilaterally Neck Neck: Yes normal visual inspection and Yes no lymphadenopathy Lymphatic: no lymphadenopathy noted Chest Chest palpation & inspection: normal inspection of the chest Resp Effort & Inspection: normal respiratory effort, able to speak in complete sentences, no audible wheezes, no cough, no stridor, not tachypneic, no tripod positioning and no use of accessory muscles Auscultation: clear to auscultation bilaterally Cardio Jugular venous distension: no JVD Rate: regular rate Rhythm: regular rhythm Skin Other: warm, dry General skin exam: no rashes or lesions noted Neuro General: patient oriented x3 Cranial nerves: Yes Normal hearing present Cognition (Neuro): normal cognition Gait exam (Neuro): Normal gait present Extrem General: Yes normal to inspection, Yes capillary refill normal, Yes no clubbing, cyanosis or edema and Yes no pedal edema Psych Appearance: grossly normal and well kempt Speech and movement: Normal speech and movement present and Clear speech present Affect: normal affect Attitude: cooperative Thought process: Normal thought process present Thought content: Normal thought content present Insight: Good insight present (Psych) Judgement: Good judgement present (Psych) Assessment & Plan Assessment & Plan (1) Asthma: Code(s): J45.909 - Unspecified asthma, uncomplicated Category: Medical Plan At this time Sky reports excellent control of respiratory symptoms, using Dulera 200 mcg BID. Will decrease to Dulera 100 mcg BID and continue Singulair, albuterol MDI. Will send refills. He is aware to call if symptoms become less controlled. All questions were answered and patient is in agreement of plan. Will follow up in 6 months or sooner if needed. Medications: New mometasone-formoterol 100-5 mcg/actuation (Dulera) 2 puffs inhalation BID 13 grams 6RF Refilled albuterol sulfate 90 mcg/actuation 2 puffs PO Q6H PRN 8.5 grams 3RF shortness of breath or wheezing montelukast 10 mg PO DAILY 90 tabs 3RF Discontinued mometasone-formoterol 200-5 mcg/actuation (Dulera) Discontinued Reason: Patient Completed Course 2 puffs inhalation BID 13 grams 6RF Coding Level of Care Code Est Pt Level 4 (31829) Diagnoses Asthma J45.909
[2025-05-16 09:07] VITALS: BP 108/62; PULSE 71; O2SAT 96; BMI 28.8
== END 2025-05-16 09:24 | disposition home or self-care (01) ==
PROVIDERS: PCP Internal Medicine; Visit Provider Nurse Practitioner Family
DX: J45.909 Unspecified asthma, uncomplicated (principal)
CPT/HCPCS: 99214

== ENCOUNTER 2025-07-18 11:22 | Outpatient (AMB) | payer BC, SELFPAY ==
--- OUTSIDE RECORDS SUMMARY | 2012-11-25 13:00 | XMS_ITS | Continuity of Care Document ---
Author Organization [facility] Address [address] [place] [address] Phone Care Team Providers Care Court Monitor Name Role Phone Ophelia Christiansen DNP Unavailable Unavailable Allergies, Adverse Reactions, Alerts Substance Reaction Status Criticality No Known Drug Allergies Active No I nformation Medications Medication Instructions Dosage Effective Dates (start - stop) Status Comments Polytrim 0.1 %-10,000 unit/mL Eye Drops instill 1 drop by ophthalmic route every 6 hours into affected eye(s) - Active Biaxin 500 mg tablet take 1 tablet (500MG) by oral route every 12 hours - No Longer Active Procedures Procedure Date [facility] Offic/outpt E&m New Low-mod 20 12 Advance Directives Directive Yes / No Effective Date File Name Resuscitation Not Answered N/A N/A Life Support Not Answered N/A N/A Intubation Not Answered N/A N/A Antibiotics Not Answered N/A N/A IV Fluid Support Not Answered N/A N/A Tube Feed Not Answered N/A N/A Other Directive N/A N/A WARNING:The information contained in this section is historical and is provided for information only and does not constitute a legal document or any assurance that the information is still accurate. Please verify the information with the [place] of the legal document before using it for clinical purposes. Encounters Encounter Description Practice Location Reason(s) For Visit Diagnoses Date Provider Providers Copied on Encounter [facility], [address], [place], [place], [id number], [place] tel:[phone] [facility] CM ACUTE SINUSITIS Lizbet MARINO Ophelia. [address], [address], [place], [place], [id number], [place]. tel:[phone] Referring Provider: Lucero Hall MD, [address] [facility] [place], [address]. tel:[phone] Offic/outpt E&m New Low-mod [facility], [address], [place], [place], [id number], [place] tel:[phone] [facility] CM CORNEAL INJURY, SUPERFICIAL Laura MSN RN [facility]- [facility]. [address], [place], [place], [id number], [place]. tel:[phone] Family History Family Member Type Diagnosis Age At Onset No Information Payers Payer name Insurance type Covered libertarian ID Edna mane(s) [facility] [id number] Social History Type Description Quantity Date Captured Comments Alcohol Use Details Unknown Caffeine Use Details Unknown Tobacco Use Status No Information Smoking Status Never smoker Non-Smoking Tobacco Use Details : No Details Available : No Details Available Sex Male Vital Signs Date / Time: Height Weight BMI Pulse Rate Blood Pressure Temperature Respiratory Rate Body Surface Area Head Circumference Head Circ. Percentile Wt./Elbert. Percentile BMI percentile Pulse Ox Inhaled Ox 5:44 PM 77.00 in 239.00 lbs 28.3 4 kg/m eter (2) 100 /min 122/74 mm[Hg] 100.70 F Chief Complaint And Reason For Visit No Information Reason For Referral Reason For Referral No Information History Of Present Illness Encounter Date Complaint History Of Prese nt Illness No Information Functional Status Date Functional Assessmen t No Information Instructions Date Instruction Additional Infor mation No Information Assessments Type Assessment Date No Information Patient Care Teams Name Effective Dates (start - stop) Status Members No Information
--- NOTE | 2025-07-18 11:24 | A.OFFPC_ITS ---
Vital Signs 07/18/25 11:25 Height 6 ft 5 in Weight 234 lb BMI 27.7 BP 127/67 Respiration 16 Pulse 68 Pulse Source Pulse Oximeter Temp 98.2 F Temp Source Temporal Artery Scan Pulse Oximetry (%) 98 Oxygen Delivery Method Room Air Intake Visit Reasons: anxiety [employer] Required: No Accompanied by: Self / Same As Patient Allergies No Known Allergies Allergy (Verified 07/18/25 11:25) Tobacco use date assessed: 07/18/25 Dental Screening Dental Screen Date: 02/01/25 [facility] Medical History (Updated 07/22/25 @ 07:02 by Yanick Diego MD) Generalized anxiety disorder Injury of articular cartilage of right knee Effusion of knee joint right Synovial cyst of popliteal space [Melendez], right knee Thoracic scoliosis Cough Medial meniscus tear Overweight (BMI 25.0-29.9) Tick bite Right knee pain Chronic pain History of deviated nasal septum Asthma Obstructive sleep apnea syndrome Surgical History History of nasal surgery History of wisdom tooth extraction Family History Father Heart attack History of heart artery stent Diabetes Mother No problems noted. Social History Housing: House Alcohol intake: current Alcohol intake frequency: 3 or more drinks per day Patient Tobacco Use Status: Never used Tobacco service: No Current occupational status: employed Cognitive needs: No Hearing needs: No Vision needs: No Questionnaire PHQ-9 Over the last 2 weeks, how often have you been bothered by any of the following problems? 1. Little interest or pleasure in doing things: not at all 2. Feeling down, depressed, or hopeless: not at all 3. Trouble falling or staying asleep, or sleeping too much: not at all 4. Feeling tired or having little energy: not at all 5. Poor appetite or overeating: not at all 6. Feeling bad about yourself - or that you are a failure or have let yourself or your family down: not at all 7. Trouble concentrating on things, such as reading the newspaper or watching television: not at all 8. Moving or speaking so slowly that other people could have noticed. Or the opposite - being so fidgety or restless that you have been moving around a lot more than usual: not at all 9. Thoughts that you would be better off or of hurting yourself in some way: not at all Total score: 0 Depression Screening Interpretation: Negative Depression Screening Done: Yes 28275 - PHQ-9 Billing: Yes Source: Developed by Drs. Juanjose Atkinson, Haley Sandra, Luis Fernando Osuan and colleagues, with an educational jacob from [employer]. Thrive Questionnaire Date Thrive assessed: 02/01/25 I am a: Patient What is your living situation today?: I have a steady place to live Within the past 12 months, did the food you bought not last and you didn't have the money to get more?: Never true Within the past 12 months, did you worry whether your food would run out before you got money to buy more?: Never true Do you have trouble paying for medicines?: No Do you have trouble getting transportation to medical appointments?: No Do you have trouble paying your heating and electricity bill?: No Do you have trouble taking care of your child, family member or friend?: No Do you have trouble with day-to-day activities such as bathing, preparing meals, shopping, managing finances, etc.?: No Are you currently unemployed and looking for a job?: No Are you interested in more education?: No THRIVE Score: 0 AUDIT C Alcohol Use Questionnaire (AUDIT-C) 1. How often do you have a drink containing alcohol?: 2-3 times a week 2. How many drinks containing alcohol do you have on a typical day when you are drinking?: 1 or 2 3. How often do you have six or more drinks on one occasion?: Never Total Score: 3 Score Reviewed/Action Taken: No HILTON-7 AMB Questionnaire HILTON-7 Date HILTON - 7 assessed: 02/01/25 Feeling nervous, anxious, or on edge: 3 = Nearly every day Not being able to stop or control worryin = Nearly every day Worrying too much about different things: 3 = Nearly every day Trouble relaxin = Nearly every day Being so restless that it is hard to sit still: 3 = Nearly every day Becoming easily annoyed or irritable: 3 = Nearly every day Feeling afraid as if something awful might happen: 1 = Several days Total HILTON-7 score (0-4 normal; 5-9 mild; 10-14 moderate; 15-21 severe): 19 Source: Developed by Drs. Juanjose Atkinson, Haley Sandra, Luis Fernando Osuna and colleagues, with an educational jacob from [employer]. Physical exam (Primary Care) Vital Signs: Last Vital Signs Temp 98.2 F 07/18/25 11:25 Pulse 68 07/18/25 11:25 Resp 16 07/18/25 11:25 BP 127/67 07/18/25 11:25 Pulse Ox 98 07/18/25 11:25 Oxygen Delivery Method Room Air 07/18/25 11:25 BMI result Body Mass Index 27.7 Tobacco/Smoking Status: Tobacco use Status Tobacco use date assessed 07/18/25 07/18/25 11:27 Patient Tobacco Use Status Never used Tobacco 07/18/25 11:27 PHQ-9: PHQ-9 Score PHQ-9: Total score 0 07/18/25 11:32 Depression Screening Interpretation: Negative Thrive Assessment: Date of Thrive Assessment Date Thrive assessed 02/01/25 07/18/25 11:27 Coding Level of Care Code Est Pt Level 4 (42508) Complex EM visit Add On G2211 Diagnoses Generalized anxiety disorder F41.1 Additional Codes PHQ-9 - 23934 - PHQ-9 Billing: Yes ([id number]) Assessment & Plan Assessment & Plan (1) Generalized anxiety disorder: Comment: SSRI started 07/18/2025 Code(s): F41.1 - Generalized anxiety disorder Category: Medical Plan: History of Present Illness - The patient is a 39-year-old male presenting with anxiety disorder. - Anxiety disorder: The patient reports experiencing anxiety for the past one and a half to two years, initially triggered by problems at home and work. - He has left his previous job, which has helped alleviate some stress, but ongoing marital issues persist, contributing to his anxiety. - The patient describes symptoms of overthinking, rumination, and ideation on future events, which exacerbate his anxiety. - Sleep disturbance: The patient reports significant sleep issues, averaging about 4.5 hours of sleep per night, with some nights of no sleep at all. - He attempts to sleep around 10:30 to 11:30 PM but often lies awake for hours. - Asthma: The patient is currently on medication for asthma, which is the only medication he is taking. - He has never been on any psychiatric medication before. - The patient has experienced mood swings and a significant weight loss of approximately 20 pounds, attributed to a lack of appetite. - He engages in regular physical activity, including Jiu-Jitsu and weightlifting. 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 - Family status: He is with two children, aged eight and five, and is currently undergoing couples counseling. - Exercise: Engages in regular physical activity, including Jiu-Jitsu and weightlifting. - Nutritional intake: Reports a lack of appetite and significant weight loss. Review of Systems - Psychiatric: Reports anxiety, overthinking, rumination, mood swings, and crying spells. Denies any history of psychiatric medication use. - Neurological: Reports sleep disturbance, averaging 4.5 hours of sleep per night, with some nights of no sleep. - Respiratory: Reports asthma, currently managed with medication. - Gastrointestinal: Reports a lack of appetite and significant weight loss of approximately 20 pounds. Physical Exam General: Cooperative and healthy appearing Nutritional Appearance: Well nourished Orientation/consciousness: Patient oriented x3 Limitations: No limitations Head: Normal to inspection General: Appearance normal, both eyes and all related structures Neck: Normal visual inspection Chest: Normal palpation of entire chest wall Respiratory: Asthma ormal respiratory effort Neurology: Patient oriented x3, reports anxiety, overthinking, rumination, mood swings, and crying spells. Sleep is poor, averaging 4-1/2 hours per night. Appet ite is decreased with significant weight loss. Libido is high. Results Plan 1. Anxiety Disorder - Initiate treatment with citalopram 10 mg daily to manage anxiety symptoms. - Discussed the potential side effects, including initial dizziness and changes in libido, and the importance of not abruptly discontinuing the medication. - Plan to follow up in three weeks to assess medication tolerance and effectiveness. 2. Sleep Disturbance - Prescribed trazodone 50 mg for sleep, with instructions to adjust the dose if necessary. - Advised to monitor sleep patterns and report any persistent issues during follow-up. 3. Asthma - Continue current asthma medication regimen. Discussion Notes I discussed with the patient the diagnosis of anxiety disorder and the potential benefits of starting citalopram to manage symptoms. We reviewed the expected timeline for medication efficacy, potential side effects, and the importance of adherence to the prescribed regimen. Additionally, I explained the use of trazodone for sleep disturbances and the need for follow-up to monitor progress and adjust treatment as necessary. The patient was advised on the importance of maintaining a log of symptoms to better assess the effectiveness of the treatment plan. Patient Instructions - Take citalopram 10 mg daily as prescribed. - Use trazodone 50 mg for sleep, adjusting the dose if necessary. - Keep a log of symptoms and sleep patterns to discuss at the next appointment. - Follow up in three weeks to evaluate treatment effectiveness and side effects. - Continue current asthma medication regimen. Medications: New escitalopram oxalate 10 mg PO DAILY 90 tabs 1RF 90 days trazodone 50 mg PO DAILY 90 tabs 1RF
[2025-07-18 11:25] VITALS: BP 127/67; PULSE 68; RESP 16; TEMP 36.8; O2SAT 98; BMI 27.7
== END 2025-07-18 11:59 | disposition home or self-care (01) ==
LOC: HO.HMCSH 11:22
PROVIDERS: PCP Internal Medicine; Visit Provider Internal Medicine
DX: F41.1 Generalized anxiety disorder (principal)

== ENCOUNTER → 2025-07-18 11:22 | Outpatient (BNVA) | payer BC, SELFPAY | PROVIDERS: PCP Internal Medicine; Visit Provider Internal Medicine | DX: F41.1 Generalized anxiety disorder (principal); J45.909 Unspecified asthma, uncomplicated; Z79.899 Other long term (current) drug therapy | CPT/HCPCS: 96127 ==

== ENCOUNTER 2025-08-11 11:31 | Emergency (ER) | payer BC, SELFPAY ==
--- NOTE | ~2025-08-11 | XR_ITS ---
EXAMINATION: XR CHEST 2 VIEWS HISTORY: SOB COMPARISON: Comparison is made with the prior examination dated 01/31/2025. FINDINGS: PA and lateral views of the chest are submitted. The lungs are expanded and clear. There is no pleural effusion, pneumothorax, or pulmonary vascular congestion. The heart is normal in size. The bones are intact. XR/XR chest 2V IMPRESSION: No acute cardiopulmonary abnormality. Electronically signed by: Juanjose Causey MD 08/11/2025 12:14 PM EDT
--- NOTE | 2025-08-11 11:33 | ED_ITS ---
HPI - General Adult General Chief complaint: General Medical Stated complaint: infection Time Seen by Provider: 08/11/25 12:28 Source: patient Mode of arrival: ambulatory Limitations: no limitations History of Present Illness ED Provider: Ann-Marie Dudley PA-C HPI narrative: Patient is a 39 year old assigned male at with a history of HILTON presenting to the emergency department today with a rash. Patient states that he has noticed a rash to his chest, legs, and hair line over the last few weeks - around the same time he got a new hot tub. Patient states that he does [employer] but he wears a rash guard and no one else at the gym has had any issues. Patient denies any other complaints at this time. Related Data Previous Rx's ?Medication ?Instructions ?Recorded albuterol sulfate 90 mcg/actuation 2 puff PO Q6H PRN s hortness of 05/16/25 aerosol inhaler breath or wheezing #8.5 gram s mometasone-formoterol HFA 100 2 puff inhalation BID #1 3 grams 05/16/25 mcg-5 mcg/actuation aerosol inhaler (Dulera) montelukast 10 mg tablet 10 mg PO DAILY #90 tabs 04/25 02/15 escitalopram oxalate 10 mg tablet 10 mg PO DAILY 90 da ys #90 tabs 07/18/25 trazodone 50 mg tablet 50 mg PO DAILY #90 tabs 06/25 04/17 chlorhexidine gluconate 4 % See Rx Instructions .Route 08/11/25 topical liquid (Antiseptic Skin .COMPLEX 2 weeks #473 mL Cleanser (chlorhexidine)) doxycycline hyclate 100 mg tablet 100 mg PO BID 7 days #14 tabs 08/11/25 Allergies Allergy/AdvReac Type Severity Reaction Status Date / Time No Known Allergies Allergy Verified 08/11/25 11:39 Review of Systems 2 Constitutional: Constitutional: Reports as per HPI Eyes: Eyes: Reports as per HPI ENT: Reports as per HPI Cardiovascular: Cardiovascular: Reports as per HPI Respiratory: Respiratory: Reports as per HPI Gastrointestinal: Gastrointestinal: Reports as per HPI Genitourinary: Genitourinary: Reports as per HPI Musculoskeletal: Musculoskeletal: Reports as per HPI Integumentary/Breasts: Skin/Breast: Reports as per HPI Neurologic: Reports as per HPI Psychiatric: Psychiatric: Reports as per HPI Endocrine: Endocrine: Reports as per HPI Hematologic/Lymphatic: Hematologic/Lymphatic: Reports as per HPI Allergic/Immunologic: Allergic/Immunologic: Reports as per HPI [facility] Past Medical History Attestation statement: The following information was validated with the patient. Source: old records reviewed and nursing notes reviewed Medical History Generalized anxiety disorder Injury of articular cartilage of right knee Effusion of knee joint right Synovial cyst of popliteal space [Melendez], right knee Thoracic scoliosis Cough Medial meniscus tear Overweight (BMI 25.0-29.9) Tick bite Right knee pain Chronic pain History of deviated nasal septum Asthma Obstructive sleep apnea syndrome Surgical History History of nasal surgery History of wisdom tooth extraction Family History Family History Father Heart attack History of heart artery stent Diabetes Mother No problems noted. Social History Social History Housing: House Alcohol intake: current Alcohol intake frequency: 3 or more drinks per day Patient Tobacco Use Status: Never used Tobacco Advance Directives: No Advance Directives Information Provided: Yes service: No Current occupational status: employed Cognitive needs: No Hearing needs: No Vision needs: No Physical Exam ED Vital Signs: Vital Signs - 24 hr 08/11/25 11:34 08/11/25 13:09 Temperature 97.4 F 97.4 F Pulse Rate 71 71 Respiratory Rate 16 16 Blood Pressure 126/72 126/72 Pulse Oximetry 97 97 Oxygen Delivery Method Room Air Room Air BMI result Body Mass Index 26.6 Const General: cooperative, no acute distress, alert and awake Nutritional Appearance: well nourished Orientation/consciousness: patient oriented x3 HENMT Head: Yes normal to inspection and Yes atraumatic Ears: hearing grossly normal bilaterally and external ears normal General nose exam: Normal external nose present, no nasal discharge noted and no epistaxis Face and sinus: Yes normal facial exam, No abrasion and No laceration Mouth: Normal oral and palatal mucosa present, no drooling and no muffled voice Eyes General: appearance normal, both eyes and all related structures Periorbital: periorbital findings normal Eyelids: Yes eyelids normal Conjunctivae: conjunctivae normal Pupils: Equal, round and reactive pupils present EOM: EOMs intact bilaterally Neck Neck: Yes normal visual inspection and Yes full ROM Resp Effort & Inspection: normal respiratory effort and able to speak in complete sentences Skin Other: Neuro General: patient oriented x3, moves all extremities and CN's II-XI intact bilaterally Cranial nerves: Yes Equal, round and reactive pupils present Cognition (Neuro): normal cognition Extrem General: Yes full ROM and Yes capillary refill normal Psych Appearance: grossly normal Mental Status: mental status grossly normal Affect: normal affect Attitude: cooperative Thought process: Normal thought process present Thought content: Normal thought content present Insight: Good insight present (Psych) Course Course Course Narrative: This is an RME: Additional HPI, ROS, PE not included below will be deferred to primary provider. RME assessment and note performed by: Gwen Babcock PA-C This is a 68-iwmw-pcw-male, with a hx of asthma, HILTON, who presents to the ER with complaints of subjective fevers, near syncope since today. Patient reports that over the last week he has noticed pustules noted amongst his chest wall. 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 He states that this is very atypical of him. Plan: Labs, EKG, chest x-ray, viral swabs, further ER evaluation needed. Medical Decision Making Medical Decision Making MDM Narrative: Patient is a 39 year old assigned male at with a history of HILTON presenting to the emergency department today with a rash. Patient's physical exam was as noted in the physical exam portion of this note and consistent with folliculitis. Patient's blood work was unremarkable. Patient's EKG was unremarkable. Patient's chest x-ray showed no acute process. Patient's clinical presentation is most consistent with folliculitis. Patient expressed some shortness of breath / dizziness to the charge nurse and triage provider however, he did not continue to have these symptoms and I am suspicious they are secondary to his concern over his rash. I explained my physical exam findings as well as all test results to the patient. I answered all questions asked by the patient. I stressed the importance of the patient taking his medication as directed (either prescribed or as the over the counter packaging recommends). I stressed the importance of the patient following up with his primary care provider. I stressed the importance of the patient returning to the emergency department immediately if his symptoms were to worsen or if he were to develop any dizziness, shortness of breath, difficulty breathing, chest pain, blurry vision, loss of vision, nausea, vomiting, abdominal pain, fever, chills, back pain, or any other complaints. Patient verbalized agreement and understanding with this treatment plan and discharge. Differential Diagnosis Differential Diagnoses: The differential diagnosis associated with the presentation includes Folliculitis Rash Admission/Observation Consideration of admission/observation: Escalation of care including admission/observation considered Patient would have been admitted to the hospital had his work up had any findings where hospital admission was appropriate and his clinical presentation warranted hospital admission. Lab Data [facility] Lab Attestation statement: I reviewed the patient's lab results. My interpretation of these results are in the [facility] Rationale portion of this note. 08/11/25 12:01 08/11/25 12:01 Labs: Lab Results 08/11/25 Range/Units 12:01 WBC 5.0 (4.8-10.8) X10*3/uL RBC 4.40 L (4.60-5.80) X10*6/uL Hgb 13.6 L (14.0-18.0) g/dl Hct 40.7 L (42.0-52.0) % MCV 92.5 (80.0-98.0) fL MCH 30.9 (27.0-33.0) pg MCHC 33.4 (31.0-36.0) g/dl RDW 13.0 (11.0-16.0) % Plt Count 203 (160-400) X10*3/uL MPV 10.1 (9.4-12.4) fL Immature Gran % (Auto) 0.2 (0.0-0.4) % Neut % (Auto) 66.8 (45-73) % Lymph % (Auto) 19.1 L (20-40) % Merrick % (Auto) 12.9 H (2-11) % Eos % (Auto) 0.8 (0-4) % Baso % (Auto) 0.2 (0-2) % Lymph # (Auto) 1.0 L (1.2-4.9) X10*3/uL Merrick # (Auto) 0.6 (0.1-1.2) X10*3/uL Eos # (Auto) 0.0 (0.0-0.4) X10*3/uL Baso # (Auto) 0.0 (0.0-0.2) X10*3/uL Abs Immat Gran (auto) 0.01 (0.00-0.03) X10*3/uL Absolute Neuts (auto) 3.3 (2.0-8.3) x10*3/uL Absolute Nucleated RBC 0.000 (0.0-0.012) X10*3/uL Nucleated RBC % (auto) 0.0 (0.0-0.2) /100WBC Sodium 140 (135-145) mmol/L Potassium 4.2 (3.3-5.1) mmol/L Chloride 106 (96-108) mmol/L Carbon Dioxide 30 H (22-29) mmol/L Anion Gap 8 L (12-20) BUN 23 H (9-16) mg/dL Creatinine 1.15 (0.5-1.4) mg/dL Estim Creat Clear Calc 107.6 Estimated GFR > 60 Random Glucose 91 (60-115) mg/dL Calcium 8.9 (8.4-10.2) mg/dL Magnesium 2.0 (1.6-2.6) mg/dL Total Bilirubin 0.5 (0.0-1.0) mg/dL Direct Bilirubin 0.2 (0.0-0.5) mg/dL AST 40 H (5-37) U/L ALT 34 (0-40) U/L Alkaline Phosphatase 69 (39-117) U/L Troponin I High Sens < 2.7 (<3.5-35.0) ng/L Total Protein 7.0 (6.5-8.0) g/dL Albumin 4.4 (3.5-5.0) g/dL COVID-19 (ZAK) Negative (Negative) COVID-19 Clin Com See Note Influenza Type A (DIDIER) Negative (Negative) Influenza Type B (DIDIER) Negative (Negative) Influenza A & B Note See Note Independent Interpretation I performed an independent interpretation of an: EKG and Plain X-Ray Interpretation: My interpretation is in agreement with the radiologist's impression of this imaging study. L Reason for Exam: SOB EXAMINATION: XR CHEST 2 VIEWS HISTORY: SOB COMPARISON: Comparison is made with the prior examination dated 01/31/2025. FINDINGS: PA and lateral views of the chest are submitted. The lungs are expanded and clear. There is no pleural effusion, pneumothorax, or pulmonary vascular congestion. The heart is normal in size. The bones are intact. XR/XR chest 2V IMPRESSION: No acute cardiopulmonary abnormality. Electronically signed by: Juanjose Causey MD 08/11/2025 12:14 PM EDT RP Dictated By: Juanjose Causey MD Signed By: Electronically signed by Juanjose Causey MD 08/11/25 1214 I independently interpreted this EKG and am in agreement with the below findings: Vent. Rate: 58 BPM Atrial Rate: 58 BPM P-R Int: 156 ms QRS Dur: 100 ms QT Int: 404 ms P-R-T Axes: 44 70 62 degrees QTcB Int: 396 ms Sinus bradycardia Otherwise normal ECG No previous ECGs available DD/ 1149 Radiology Impression Discussion of test interpretation with radiology: I have reviewed the radiologist's reading. Prescription Management I considered prescription management with: Antibiotic (patient prescribed an antibiotic) Discharge Plan Discharge Clinical Impression: Folliculitis Patient Disposition: Home, Self-Care Instructions: Folliculitis (ED) Additional Instructions: Your work up today showed no EMERGENT cause for your symptoms. I believe your rash is secondary to your new hot tub / hot tub use. PLEASE consult with a hot tub / pool specialist on how best to address your water / tub to avoid this recurring in the future. Please avoid use in the hot tub for at LEAST 2 weeks to allow for total resolution of this rash. Throw out all razors and use NEW ones after resolution of these symptoms. IF you are prescribed home medications and/or you are taking over the counter medications at home - it is very important you continue to do so as prescribed / directed unless told otherwise. Follow up with a primary care provider. Return to the emergency department immediately if your symptoms worsen or if you develop any numbness, tingling, dizziness, shortness of breath, difficulty breathing, chest pain, blurry vision, loss of vision, nausea, vomiting, abdominal pain, fever, chills, back pain, or any other complaints. L If you do not have a primary care provider - call any of the below numbers to establish and follow up with a primary care provider. [facility] ([place]) [phone] [place] [address], [address] [facility] Primary Care ([address] [place]) [phone] [place] [address], [address] [facility], [address] [facility] Care ([address] [place]) [phone] [place] [address], [address] [facility], [address] [facility] Primary Care ([place]) [phone] [place] [address] 2 [facility], [address] [facility] Family Medicine [phone] [place] [address], [address] Please see the information below about our Patient Portal. If you are not yet enrolled in the [facility] Patient Portal, you will receive an enrollment email invitation following your visit to any [facility] setting. You may also self-enroll in the Patient Portal by visiting our website: [email or web address] The following information is required to access the Patient Portal: - Your [facility] Medical Record Number - Your personal home email address (must match what is in your electronic medical record, Registration staff can assist with this) - Name - Date of Capabilities of the Patient Portal: - Message some providers - View upcoming appointments - Access your health summary, medical history, and visit history - View current conditions and allergies - View procedure and lab results - View your medications, including guidelines, side effects, and precautions - Complete pre-appointment questionnaires requested by your provider - Ready summary reports of your office visits and procedures To access the Patient Portal Mobile Lesly, follow these directions: - Search [employer] in the Lesly Store or Google Play Store - Download the Lesly - Search for [facility] - Enter your login/password Prescriptions: New doxycycline hyclate 100 mg tablet 100 mg PO BID 7 Days Qty: 14 0RF chlorhexidine gluconate [Antiseptic Skin Clnsr(chlorhe)] 4 % liquid See Rx Instructions .ROUTE .COMPLEX 14 Days Qty: 473 0RF Rx Instructions: Use daily for 2 weeks in shower No Action Dulera 100-5 mcg/actuation HFA aerosol inhaler 2 puff inhalation BID Qty: 13 6RF albuterol sulfate 90 mcg/actuation HFA aerosol inhaler 2 puff PO Q6H PRN (Reason: shortness of breath or wheezing) Qty: 8.5 3RF montelukast 10 mg tablet 10 mg PO DAILY Qty: 90 3RF trazodone 50 mg tablet 50 mg PO DAILY Qty: 90 1RF escitalopram oxalate 10 mg tablet 10 mg PO DAILY 90 Days Qty: 90 1RF Referrals: Yanick Diego MD [Primary Care Provider, Internal Medicine] Interventions: ED Discharge Assessment Last Done: 08/11/25 13:09 Discharge Date/Time: 08/11/25 13:10 Print Language: [place]
[2025-08-11 11:34] VITALS: BP 126/72; PULSE 71; RESP 16; TEMP 36.3; O2SAT 97; BMI 26.6
--- NOTE | 2025-08-11 11:39 | ECG_ITS ---
Test Reason : SOB/DIZZINESS Blood Pressure : */* mmHG Vent. Rate : 58 BPM Atrial Rate : 58 BPM P-R Int : 156 ms QRS Dur : 100 ms QT Int : 404 ms P-R-T Axes : 44 70 62 degrees QTcB Int : 396 ms Sinus bradycardia Otherwise normal ECG No previous ECGs available Referred By: Gwen Babcock Electronically Signed By: JAMEE WILKERSON
[2025-08-11 12:08] LABS: MANUAL DIFF FLAG NO
[2025-08-11 12:09] LABS: Hematocrit 40.7 % (42.0-52.0); Hemoglobin 13.6 g/dl (14.0-18.0); Imm Gran Abs Auto 0.01 X10*3/uL (0.00-0.03); Imm Gran Pct Auto 0.2 % (0.0-0.4); Lymphocytes Absolute Auto 1.0 X10*3/uL (1.2-4.9); Mean Corpuscular HGB Conc 33.4 g/dl (31.0-36.0); Mean Corpuscular Hemoglobin 30.9 pg (27.0-33.0); Mean Corpuscular Volume 92.5 fL (80.0-98.0); NRBC Abs Auto 0.000 X10*3/uL (0.0-0.012); NRBC Pct Auto 0.0 /100WBC (0.0-0.2); Platelet Count 203 X10*3/uL (160-400); Red Blood Count 4.40 X10*6/uL (4.60-5.80); White Blood Count 5.0 X10*3/uL (4.8-10.8)
[2025-08-11 12:24] LABS: COVID-19 Test Negative (Negative); IDNOW Serial# 55D5AD1C
[2025-08-11 12:28] LABS: IDNOW Serial# 58CA691E; Influenza B2 Negative (Negative)
[2025-08-11 12:37] LABS: Alanine Aminotransferase 34 U/L (0-40); Albumin Level 4.4 g/dL (3.5-5.0); Alkaline Phosphatase 69 U/L (39-117); Anion Gap 8 (12-20); Aspartate Amino Transferase 40 U/L (5-37); Blood Urea Nitrogen 23 mg/dL (9-16); Calcium 8.9 mg/dL (8.4-10.2); Carbon Dioxide 30 mmol/L (22-29); Chloride 106 mmol/L (96-108); Creatinine Clr Calc Pharmacy 107.6; Estimated Glomerular Filt Rate > 60; Magnesium 2.0 mg/dL (1.6-2.6); Potassium 4.2 mmol/L (3.3-5.1); Sodium 140 mmol/L (135-145); Total Protein 7.0 g/dL (6.5-8.0)
[2025-08-11 12:43] LABS: Troponin-I High Sensitivity < 2.7 ng/L (<3.5-35.0)
[2025-08-11 13:09] VITALS: BP 126/72; PULSE 71; RESP 16; TEMP 36.3; O2SAT 97
== END 2025-08-11 13:10 | disposition home or self-care (01) ==
PROVIDERS: Physician Assistant Medical; Emergency Provider Emergency Medicine; PCP Internal Medicine
DX: L73.8 Other specified follicular disorders (principal)
CPT/HCPCS: 71046; 80048; 80076; 83735; 84484; 85025; 87040; 87502; 87635; 93005; 99283

== ENCOUNTER → 2025-08-11 11:39 | Outpatient (BNV) | payer BC, SELFPAY | PROVIDERS: Emergency Provider Emergency Medicine; PCP Internal Medicine; Visit Provider Internal Medicine | DX: R00.1 Bradycardia, unspecified (principal) | CPT/HCPCS: 93010 ==

== ENCOUNTER → 2025-08-11 11:40 | Outpatient (BNV) | payer BC, SELFPAY | PROVIDERS: PCP Internal Medicine; Visit Provider Radiology Diagnostic Radiology | DX: R06.02 Shortness of breath (principal) | CPT/HCPCS: 71046 ==

== ENCOUNTER 2025-08-16 11:27 | Outpatient (AMB) | payer BC, SELFPAY ==
[2025-08-16 11:29] VITALS: BP 128/70; PULSE 70; RESP 14; TEMP 36.6; O2SAT 97; BMI 26.3
--- NOTE | 2025-08-16 11:29 | A.OFFPC_ITS ---
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 Accompanied by: Self / Same As Patient Allergies No Known Allergies Allergy (Verified 08/18/25 06:15) Medication List - Last Reconciled 08/18/25 by Yanick Diego MD albuterol sulfate 90 mcg/actuation 2 puffs PO Q6H PRN chlorhexidine gluconate 4% (Antiseptic Skin Cleanser (chlorhexidine)) Use daily for 2 weeks in shower 2 weeks doxycycline hyclate 100 mg PO BID 7 days escitalopram oxalate 10 mg PO DAILY 90 days mometasone-formoterol 100-5 mcg/actuation (Dulera) 2 puffs inhalation BID montelukast 10 mg PO DAILY trazodone 50 mg PO DAILY Tobacco use date assessed: 08/16/25 Dental Screening Dental Screen Date: 02/01/25 [facility] Medical History Generalized anxiety disorder Injury of articular cartilage of right knee Effusion of knee joint right Synovial cyst of popliteal space [Melendez], right knee Thoracic scoliosis Cough Medial meniscus tear Overweight (BMI 25.0-29.9) Tick bite Right knee pain Chronic pain History of deviated nasal septum Asthma Obstructive sleep apnea syndrome Surgical History History of nasal surgery History of wisdom tooth extraction Family History Father Heart attack History of heart artery stent Diabetes Mother No problems noted. Social History Housing: House Alcohol intake: current Alcohol intake frequency: 3 or more drinks per day Patient Tobacco Use Status: Never used Tobacco service: No Current occupational status: employed Cognitive needs: No Hearing needs: No Vision needs: No Questionnaire PHQ-9 Over the last 2 weeks, how often have you been bothered by any of the following problems? 1. Little interest or pleasure in doing things: not at all 2. Feeling down, depressed, or hopeless: not at all 3. Trouble falling or staying asleep, or sleeping too much: not at all 4. Feeling tired or having little energy: not at all 5. Poor appetite or overeating: not at all 6. Feeling bad about yourself - or that you are a failure or have let yourself or your family down: not at all 7. Trouble concentrating on things, such as reading the newspaper or watching television: not at all 8. Moving or speaking so slowly that other people could have noticed. Or the opposite - being so fidgety or restless that you have been moving around a lot more than usual: not at all 9. Thoughts that you would be better off or of hurting yourself in some way: not at all Total score: 0 Depression Screening Interpretation: Negative Depression Screening Done: Yes 37387 - PHQ-9 Billing: Yes Source: Developed by Drs. Juanjose Atkinson, Haley Sandra, Luis Fernando Osuna and colleagues, with an educational jcaob from [employer]. Thrive Questionnaire Date Thrive assessed: 07/18/25 I am a: Patient What is your living situation today?: I have a steady place to live Within the past 12 months, did the food you bought not last and you didn't have the money to get more?: Never true Within the past 12 months, did you worry whether your food would run out before you got money to buy more?: Never true Do you have trouble paying for medicines?: No Do you have trouble getting transportation to medical appointments?: No Do you have trouble paying your heating and electricity bill?: No Do you have trouble taking care of your child, family member or friend?: No Do you have trouble with day-to-day activities such as bathing, preparing meals, shopping, managing finances, etc.?: No Are you currently unemployed and looking for a job?: No Are you interested in more education?: No THRIVE Score: 0 AUDIT C Alcohol Use Questionnaire (AUDIT-C) 1. How often do you have a drink containing alcohol?: 2-3 times a week 2. How many drinks containing alcohol do you have on a typical day when you are drinking?: 1 or 2 3. How often do you have six or more drinks on one occasion?: Never Total Score: 3 Score Reviewed/Action Taken: No HILTON-7 AMB Questionnaire HILTON-7 Date HILTON - 7 assessed: 02/01/25 Feeling nervous, anxious, or on edge: 3 = Nearly every day Not being able to stop or control worryin = Nearly every day Worrying too much about different things: 3 = Nearly every day Trouble relaxin = Nearly every day Being so restless that it is hard to sit still: 3 = Nearly every day Becoming easily annoyed or irritable: 3 = Nearly every day Feeling afraid as if something awful might happen: 1 = Several days Total HILTON-7 score (0-4 normal; 5-9 mild; 10-14 moderate; 15-21 severe): 19 Source: Developed by Drs. Juanjose Atkinson, Haley Sandra, Luis Fernando Osuna and colleagues, with an educational jacob from [employer]. Physical exam (Primary Care) Vital Signs: Last Vital Signs Temp 97.9 F 08/16/25 11:29 Pulse 70 08/16/25 11:29 Resp 14 08/16/25 11:29 BP 128/70 08/16/25 11:29 Pulse Ox 97 08/16/25 11:29 Oxygen Delivery Method Room Air 08/16/25 11:29 BMI result Body Mass Index 26.3 Tobacco/Smoking Status: Tobacco use Status Tobacco use date assessed 08/16/25 08/16/25 11:31 Patient Tobacco Use Status Never used Tobacco 08/16/25 11:31 PHQ-9: PHQ-9 Score PHQ-9: Total score 0 08/16/25 11:49 Depression Screening Interpretation: Negative Thrive Assessment: Date of Thrive Assessment Date Thrive assessed 07/18/25 08/16/25 11:31 Office Procedures Flu Questionnaire Does the patient have a severe egg allergy?: No Does the patient have severe life threatening allergies?: No Does the patient have a fever or illness today?: No Has the patient ever had Guillain-[place] Syndrome?: No Has the patient ever had any past reaction to a flu shot?: No Immunizations Fluarix [id number] (PF) 45 mcg (15 mcg x 3)/0.5 mL IM syringe Performing Provider: Yanick Diego MD Performing Location: [facility] [place] Adult [facility] Documented (not given) by: KONSTANTIN Stoner on 08/16/25 11:50 Reason Not Given: Patient Refused Coding Level of Care Code Est Pt Level 4 (03833) Complex EM visit Add On G2211 Diagnoses Generalized anxiety disorder F41.1 Additional Codes PHQ-9 - 88197 - PHQ-9 Billing: Yes ([id number]) Assessment & Plan Assessment & Plan (1) Generalized anxiety disorder: Comment: SSRI started 07/18/2025 Code(s): F41.1 - Generalized anxiety disorder Category: Medical Plan: History of Present Illness - The patient is a 39-year-old male presenting with anxiety disorder and associated symptoms. - Anxiety disorder: The patient has experienced anxiety for 1.5 to 2 years, triggered by problems at home and work, including marital issues and job stress. - The patient left his previous job to alleviate stress and engaged in couples counseling. - Sleep disturbance: The patient reported sleep issues, averaging 4.5 hours of sleep per night, which improved with trazodone 50 mg. - Mood swings and weight loss: The patient experienced mood swings and a weight loss of about 20 pounds. - Medication and therapy: The patient was started on citalopram 10 mg daily and trazodone for sleep, with significant improvement in symptoms noted within four days. - The patient reported no side effects from citalopram but experienced morning grogginess from trazodone. - The patient has been adherent to medication and has engaged in weekly psychotherapy sessions, reporting a positive impact on his mental health. - The patient has noticed improved relationships, particularly with his , and increased focus and enjoyment in activities such as reading and spending time with his children. - The patient reports improved sleep quality, with increased deep sleep and a total of 6 to 7 hours of sleep per night. 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 - Family status: The patient is and has children, with improved marital relations noted. - Exercise: The patient engages in rowing as part of his occupation. - Therapy: The patient is participating in couples counseling and weekly psychotherapy sessions. Review of Systems - Psychiatric: Reports anxiety, mood swings, and improved focus. Denies current rumination. - Sleep: Reports improved sleep quality with increased deep sleep. Denies current sleep disturbances. Physical Exam General: Cooperative and healthy appearing Nutritional Appearance: Well nourished Orientation/consciousness: Patient oriented x3 Limitations: No limitations Head: Normal to inspection General: Appearance normal, both eyes and all related structures Neck: Normal visual inspection Chest: Normal palpation of entire chest wall Respiratory: N ormal respiratory effort Neurology: Patient oriented x3, improved focus, less rumination, significantly happier, better mood stability. Results Plan - Continue citalopram 10 mg daily for anxiety management, with a plan to taper after nine months. - Consider discontinuing trazodone if sleep quality remains stable, but keep it available for occasional use if needed. - Continue weekly psychotherapy sessions focusing on cognitive behavioral therapy to address anxiety triggers and coping strategies. - Encourage regular exercise and stress management techniques to support mental health. - Plan a follow-up in six months to reassess medication needs and mental health status. Discussion Notes I discussed with the patient the importance of continuing citalopram for anxiety management and the plan to taper after nine months. We talked about the option to discontinue trazodone if sleep quality remains stable, but to keep it available for occasional use. I emphasized the role of cognitive behavioral therapy in addressing anxiety triggers and coping strategies. We also discussed the benefits of regular exercise and stress management techniques. A follow-up in six months was planned to reassess medication needs and mental health status. Patient Instructions - Continue taking citalopram 10 mg daily as prescribed. - Consider stopping trazodone if sleep is good, but keep it for occasional use if needed. - Attend weekly psychotherapy sessions and focus on cognitive behavioral therapy. - Engage in regular exercise and practice stress management techniques. - Schedule a follow-up appointment in six months. Orders: Orders Influenza [id number] Immunization 08/16/25 Z23 - Encounter for immunization
== END 2025-08-16 12:13 | disposition home or self-care (01) ==
LOC: HO.HMCSH 11:27
PROVIDERS: PCP Internal Medicine; Visit Provider Internal Medicine
DX: Z23 Encounter for immunization (principal)

== ENCOUNTER → 2025-08-16 11:27 | Outpatient (BNVA) | payer BC, SELFPAY | PROVIDERS: PCP Internal Medicine; Visit Provider Internal Medicine | DX: F41.1 Generalized anxiety disorder (principal); G47.9 Sleep disorder, unspecified; Z23 Encounter for immunization; Z28.21 Immunization not carried out because of patient refusal; Z79.899 Other long term (current) drug therapy | CPT/HCPCS: 90471; 96127 ==